=== PATIENT | male | born 1940 | race Caucasian/White ===

== ENCOUNTER → 2016-06-07 10:33 | Outpatient (CLI) | payer MEDICARE, BC ==
[2013-06-13 17:38] VITALS: BMI 30.4
[~2016-06-07 10:33] MED LIST: ASPIRIN325 MG PO; BAYER CHEWABLE81 MG PO; HYTRIN5 MG PO; LOFIBRA134 MG PO; PROVIGIL200 MG PO; REQUIP XL2 MG PO
[2016-06-08 07:26] LABS: IMMUNOGLOBULIN A 4053 mg/dL (61-437); IMMUNOGLOBULIN G 365 mg/dL (700-1600)
[2016-06-08 10:20] LABS: IMMUNOGLOBULIN E 7 IU/mL (0-100); IMMUNOGLOBULIN M 12 mg/dL (15-143)
== END | disposition home or self-care (01) ==
LOC: D.RT 10:33
PROVIDERS: Internal Medicine Pulmonary Disease
DX: R05 Cough (principal); J47.9 Bronchiectasis, uncomplicated

== ENCOUNTER 2016-10-16 21:00 | Inpatient (IN) | payer MEDICARE, BC ==
[~2016-10-16] VITALS: Ht 185.4 cm; Wt 104.3 kg
--- NOTE | ~2016-10-16 | HP ---
PATIENT: WAYNE MORROW MEDICAL RECORD: [id number] ACCOUNT: [id number] LOCATION:[address] : 41 ADMISSION DATE: 10/16/16 HISTORY AND PHYSICAL EXAMINATION Admission History and Physical DATE OF ADMISSION: 10/16/2016, for acute blood loss anemia and acute dehydration. HISTORY OF PRESENT ILLNESS: This is a 76-year-old white male. His called yesterday evening and she has gotten back in the town after being gone for a couple of days. The patient had complained of one episode of a black tarry stool on 10/15/2016 and he has felt weak and I have suggested that he come to the ER for further evaluation. He really had no abdominal pain or any known trouble with his bowels, except for history of diverticulosis. When he came to the ER, his white count is ____, hemoglobin 7.4, hematocrit 21.7 with 80% neutrophils and 13% lymphocytes. His basic metabolic panel is okay, except his BUN was quite elevated at 141 and creatinine elevated at 3.4. I have reviewed Dr. Oden's labs on this man. His baseline creatinine is around 1.0 to 1.1. PHYSICAL EXAMINATION: VITAL SIGNS: Otherwise, were stable and it was felt by the ER physician that he could be admitted to a regular telemetry bed. He has been seen by GI and has already had an EGD that showed linear ulcers in distal esophagus and antral ulcers as well. There was no active bleeding seen. Also, surrounding the GE junction, there was a ring versus a short stricture. He has been started on Carafate and Protonix drip. The patient did receive 2 units packed red blood cells today. Of note, also the nurse noted that he started having bright red blood in his urine today. The patient states he has never had that before. PAST MEDICAL AND SURGICAL HISTORY: He has hypertension, osteoarthritis, cataracts, coronary artery disease, sick sinus syndrome, sleep apnea. He has had cataracts ____. He has restless legs syndrome. He has had a tonsillectomy, coronary artery bypass graft done a few years ago, pacemaker placement, umbilical hernia repair in 2008. The patient was seen by Dr. Waterman for chronic cough and he ordered a CT scan of his chest and that was done on 06/07/2016, which was fairly unremarkable and his chest, but there was hydronephrosis noted. 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 Further testing by Dr. 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 It was noted on lab done by Dr. Hernandez on 08/17/2016, his BUN was elevated at 43 and creatinine 1.6. Last hemoglobin done by Dr. Hernandez showed hemoglobin of 10 and hematocrit of 31.0. HOME MEDICATIONS: Include doxazosin 1 mg at bedtime, gemfibrozil 600 mg twice a day; ropinirole 0.5 mg at bedtime, timolol eyedrops into the right eye, tamsulosin 0.4 mg once a day. ALLERGIES: No known drug allergies. SOCIAL HISTORY: He is retired. He lives with his . HABITS: He never smoked. No alcohol or drugs. HISTORY AND PHYSICAL [id number] WAYNE MORROW FAMILY HISTORY: Father at 80. Mother at 77 of an acute LA, she had diabetes. REVIEW OF SYSTEMS: GENERAL: He had a little weight loss. HEENT: No particular sinus or allergy problems. RESPIRATORY: He had a chronic cough and saw Dr. Waterman and actually has done better with that CARDIAC: He sees Dr. Joseph for heart disease and pacemaker monitoring. GASTROINTESTINAL: Colonoscopy in 2009 showed diverticulosis. He really had no nausea, vomiting or abdominal pain. GENITOURINARY: He denies any blood in his urine. He does have a history of BPH. ENDOCRINE: He has no diabetes or hypothyroidism. NEUROLOGIC: He has few aches and pains, especially in his knees. He has been taking a lot of Aleve for that. No migraine headaches or seizures. PSYCHIATRIC: Denies anxiety or depression. PHYSICAL EXAMINATION: GENERAL: He is awake and alert, in no acute distress. at bedside. VITAL SIGNS: Temperature 98.1, pulse 77, respirations 20, blood pressure 172/61. HEENT: Grossly within normal limits. NECK: Supple. HEART: Regular rate and rhythm without murmur. LUNGS: Fairly clear. ABDOMEN: Soft. Minimal tenderness. No guarding, no rebound, no mass. EXTREMITIES: No edema. LABORATORY WORK: Again admission labs showed a white count of ____, hemoglobin 7.4, hematocrit 21.7. Basic metabolic panel is okay, except BUN 141, creatinine 3.4. Liver functions were okay. DIAGNOSTIC DATA: No x-rays have been done. ASSESSMENT: 1. Acute blood loss anemia. 2. Upper gastrointestinal bleed. 3. Per EGD today, esophageal ulcers and gastric ulcer by Dr. Perez. 4. Acute dehydration. 5. Hematuria. 6. Hydronephrosis found on chest CT on 06/07/2016. A repeat CBC this afternoon at 1310 after 2 units of blood, shows hemoglobin went up to 7.6. PLAN: We will give him another unit of blood. We will check a urinalysis. I will order renal ultrasound due to the hydronephrosis. He may need urologic consultation. We will monitor H&H. Other tests and procedures as warranted. TRANSINT:[id number] Voice Confirmation ID: [id number] DOCUMENT ID: [id number] HISTORY AND PHYSICAL [id number] WAYNE MORROW WILLIAM MD CC: [id number] DICTATION DATE: 10/17/162099 FOOD CONSULTANT: 10/17/16 2220 ADM IN [facility] [address] [place] [place] [address]
--- NOTE | ~2016-10-16 | DS ---
PATIENT:WAYNE MORROW :42 MEDICAL RECORD: [id number] DISCHARGE SUMMARY ADMISSION DATE: 10/16/16 DISCHARGE DATE: 10/20/16 DISCHARGE DIAGNOSES: 1. Symptomatic acute blood loss anemia. 2. Esophageal ulcer. 3. Gastric ulcer. 4. Hematuria. 5. Benign prostatic hypertrophy. 6. Hydronephrosis with acute renal insufficiency. 7. Malignant lymphoplasmacytic lymphoma. CONSULTANTS: Dr. Garcia, Dr. Perez, Dr. Monroy, and Dr. Kearns. HOSPITAL COURSE: A 76-year-old male who had been taking 3 Aleve at bedtime on his own for chronic insomnia. He had black tarry stools for several days prior to admission and felt weak. He was directed to the Emergency Room by Dr. Manning. He was found to be very anemic and in acute renal failure. Hemoglobin was 7.4, hematocrit was 21.7 and creatinine was 3.4 with a BUN of 141. He was admitted, transfused, placed on IV PPIs and catheter placed. Imaging showed evidence of hydronephrosis. Above consultants were consulted to manage his illness. EGD was performed by Dr. Perez revealing ulcerative esophagitis and gastric ulcers as a source of GI bleeding. Dr. Garcia was consulted as well as nephrology to manage his post-obstructive diuresis. BUN and creatinine have improved. His H&H was stabilized. Today, he is asymptomatic without stools, tolerating diet and blood pressure is 124/76, H&H is 8.9 and 25.7, BUN and creatinine are 33 and 1.7. The patient was discharged home today with Holland in place to have follow up cystoscopy in [address] Garcia. He will be seen in my office in 48 hours, a CBC, BMP at that time. He will never take any anti-inflammatories again and remained on PPI prison. DISCHARGE MEDICATIONS: Flomax 0.4 mg p.o. daily, Lopid 600 mg p.o. b.i.d., Requip 5 mg p.o. at bedtime, Ritalin 10 mg p.o. b.i.d, Restoril 15 mg at h.s. p.r.n. sleep, Timoptic 0.5% ophthalmic drops 1 drop right eye b.i.d., ferrous sulfate 325 mg p.o. daily, Carafate 1 gram p.o. q.i.d. a.c. and h.s., Protonix 40 mg p.o. b.i.d. for 1 month then daily. He will remain off of Plavix and aspirin at this time. We will discuss with cardiology resuming these appropriately. DIET: Low cholesterol. ACTIVITY: Progress as tolerated. FOLLOWUP: Return to clinic to see me in 48 hours, a CBC and BMP and with Dr. Garcia in 2 weeks. He will be instructed on Holland care. TRANSINT:[id number] Voice Confirmation ID: [id number] DOCUMENT ID: [id number] DISCHARGE SUMMARY REPORT [id number] WAYNE MORROW TIMOTHY MD CC: [id number] DICTATION DATE: 10/20/16754 INTERTYPE OPERATOR: 10/21/16309 DIS IN 10/20/[id number] [place] [address]
[2016-10-16 21:45] LABS: BASOPHILS 0.1 % (0-2); EOSINOPHILS 0 % (0-7); HEMATOCRIT 21.7 % (42.0-54.0); IMMATURE GRANULOCYTES 0.5 % (0-5); LYMPHOCYTES 13.1 % (15-50); MCH 31.6 pg (26.0-34.0); MCHC 34.1 g/dL (31.0-37.0); MCV 92.7 fL (80.0-100.0); MEAN PLATELET VOLUME 9.5 fL (7.4-10.4); MONOCYTES 5.8 % (2-11); NEUTROPHILS 80.5 % (40-80); RBC 2.34 10x6/uL (4.20-6.10); RDW 12.2 % (11.5-14.5); WBC 15.4 10x3/uL (4.8-10.8)
[2016-10-16 21:52] LABS: HEMOGLOBIN 7.4 g/dL (13.5-17.5); PLATELET COUNT 239 10x3/uL (130-400)
[2016-10-16 21:58] LABS: ALBUMIN 3.3 g/dL (3.4-5.0); ANION GAP 22.6 mmol/L (8-16); BILIRUBIN - TOTAL 0.73 mg/dL (0.2-1.3); CARBON DIOXIDE 19.9 mmol/L (21.0-32.0); CREATININE - SERUM 3.4 mg/dL (0.6-1.3); POTASSIUM - SERUM 4.5 mmol/L (3.5-5.1); PROTEIN - SERUM 8.3 g/dL (6.4-8.2)
[2016-10-17] VITALS (7 sets, daily range): BP systolic 124–190; BP diastolic 53–125; BMI 30.4
--- NOTE | 2016-10-17 00:30 | NUR ---
ADMIT TO ROOM 2133 FROM ER. ACCOMPANIED BY HIS . PIV TO LEFT A/C. ADMISSION ASSESSMENT, HOME MEDS AND HISTORY REVIEWED/UPDATED. NO PAIN OR DISCOMFORT VOICED. SITED SECOND 20G IV TO RIGHT HAND FOR ORDERED PRBCS X 2. PT DIFFICULT STICK AND IT TOOK 2 NURSES/5 ATTEMPTS. SAFETY PRECAUTIONS REVIEWED. PT INSTRUCTED TO USE CALL LIGHT. IS STAYING WITH HIM AND IS IN BEDSIDE RECLINER.
[2016-10-17] MEDS ORDERED: LOPID600 MG PO (01:52)
[2016-10-17] MEDS ORDERED: RITALIN10 MG PO (01:55)
[2016-10-17] MEDS ORDERED: FLOMAX0.4 MG PO (01:56)
[2016-10-17] MEDS ORDERED: TIMOPTIC 0.5 % O5 ML RIGHT EYE (01:57)
[2016-10-17] MEDS ORDERED: ALEVE220 MG PO (01:58)
[2016-10-17] MEDS ORDERED: REQUIP5 MG PO (01:59)
--- NOTE | 2016-10-17 06:04 | NUR ---
1ST UNIT OF PRBCS COMPLETED AT 0515.
--- NOTE | 2016-10-17 07:28 | NUR ---
0711-AM ROUNDING DONE WITH PATIENT RECEIVED SECOND UNIT OF BLOOD TO RIGHT HAND, INFUSING AT 130 CC/HR WITHOUT PROBLEMS. PROTONIX DRIP AT 10 CC/HR SEEN INFUSING TO LEFT AC. ON 2L PER NC. IS AT BEDSIDE. WILL CONTINUE TO MONITOR BLOOD TRANSFUSION FOR ANY PROBLEMS.
--- NOTE | 2016-10-17 08:16 | NUR ---
0806-PERMITS SIGNED FOR EGD WITH TIVA TODAY. 0812-BLOOD HAS FINISHED TRANSFUSIING. NO S/S OF REACTIONS. PACEMAKER SITE SEEN TO LEFT CHEST UPPER WALL. WEARS GLASSES. WILL HAVE PATIENT CHANGE INTO GOWN AND GET READY FOR PROCEDURE.
--- NOTE | 2016-10-17 08:45 | NUR ---
0814-GI LAB HERE FOR PATIENT, CHANGING INTO GOWN AND NON SKID SOCKS PLACED ON HIM. I INFORMED THEM THAT NO PRE-OP MEDS HAVE BEEN GIVEN ANESTHSIA JUST LEFT THE ROOM AND THEY ARE HERE TO PICK HIM UP.
--- NOTE | 2016-10-17 10:20 | NUR ---
RECEIVED BACK FROM GI LAB. DENIES ANY NEEDS. WILL MONITOR.
[2016-10-17 10:48] LABS: BASOPHILS 0.1 % (0-2); EOSINOPHILS 0.1 % (0-7); HEMATOCRIT 20.3 % (42.0-54.0); IMMATURE GRANULOCYTES 0.2 % (0-5); LYMPHOCYTES 21.2 % (15-50); MCHC 34.5 g/dL (31.0-37.0); MCV 92.7 fL (80.0-100.0); MEAN PLATELET VOLUME 9.1 fL (7.4-10.4); MONOCYTES 8.9 % (2-11); NEUTROPHILS 69.5 % (40-80); RBC 2.19 10x6/uL (4.20-6.10); RDW 13.5 % (11.5-14.5)
[2016-10-17 10:55] LABS: WBC 9.3 10x3/uL (4.8-10.8)
[2016-10-17 10:56] LABS: ANION GAP 19.7 mmol/L (8-16); CALCIUM 8.2 mg/dL (8.5-10.1); CARBON DIOXIDE 19.3 mmol/L (21.0-32.0); CREATININE - SERUM 2.6 mg/dL (0.6-1.3)
[2016-10-17 10:58] LABS: PLATELET COUNT 181 10x3/uL (130-400)
--- NOTE | 2016-10-17 11:13 | NUR ---
1110-BLOOD COUNT TO RETURN PAST LAB DRAW AND TWO UNITS OF BLOOD WITH RESULT OF 7.0/20.3. CALLED LAB TO SEE WHERE LAB ENRRIQUE HIS BLOOD FROM (WHICH ARM). AWAITING CALL BACK. FAMILY MEMBER STATES IT WAS FROM HIS RIGHT ARM (IV FLUIDS ARE INFUSING TO RIGHT HAND). WILL AWAIT CALL BACK BEFORE CALLING DOCTOR.
--- NOTE | 2016-10-17 12:41 | NUR ---
IV FLUIDS SWITCHED TO LEFT AC SO THAT LAB CAN TRY AND DRAW FROM RIGHT FA.
--- NOTE | 2016-10-17 13:09 | NUR ---
LAN FROM LAB HERE FOR RE-DRAW. WAS ABLE TO DRAW BLOOD FROM RIGHT ARM WITH NO FLUIDS GOING. WILL AWAIT RESULTS.
--- NOTE | 2016-10-17 13:15 | NUR ---
LAB RESULTS FROM RE-DRAW ARE 7.6. WILL AWAIT FOR PRIMARY TO COME BY AND SEE PATIENT OR I WILL CALL SHORTLY.
[2016-10-17 13:22] LABS: ANION GAP 19.5 mmol/L (8-16); CARBON DIOXIDE 19.5 mmol/L (21.0-32.0); CREATININE - SERUM 2.8 mg/dL (0.6-1.3)
[2016-10-17 13:23] LABS: BASOPHILS 0.1 % (0-2); CALCIUM 8.5 mg/dL (8.5-10.1); EOSINOPHILS 0.2 % (0-7); HEMATOCRIT 21.6 % (42.0-54.0); HEMOGLOBIN 7.6 g/dL (13.5-17.5); IMMATURE GRANULOCYTES 0.1 % (0-5); LYMPHOCYTES 21.7 % (15-50); MCH 32.3 pg (26.0-34.0); MCHC 35.2 g/dL (31.0-37.0); MCV 91.9 fL (80.0-100.0); MEAN PLATELET VOLUME 9.3 fL (7.4-10.4); MONOCYTES 8.5 % (2-11); NEUTROPHILS 69.4 % (40-80); PLATELET COUNT 206 10x3/uL (130-400); RBC 2.35 10x6/uL (4.20-6.10); RDW 13.8 % (11.5-14.5); WBC 8.9 10x3/uL (4.8-10.8)
--- NOTE | 2016-10-17 14:51 | NUR ---
CALLED TO ROOM WITH PATIENT SHOWING ME SOME BRIGHT RED BLOOD SPOTS ON FLOOR PAST VOIDING IN URINAL. URINE IN URINAL IS SLIGHTY RED TINTED. PATIENT STATES THAT THIS HAPPENED. WHEN QUESTIONED ABOUT ANY BURNING OR STINGING, HE STATES THAT HE HAS "A LITTLE". CALL PLACED TO DR MOORE TO NOTIFY HIM OF THIS AND PATIENT'S BLOOD COUNT. AWAITING CALL BACK.
--- NOTE | 2016-10-17 15:15 | NUR ---
DR MOORE TO CALL BACK AND STATES THAT HE WILL BE BY TO SEE HIS PATIENTS IN APPROX 30 MIN. THIS IS RELAYED TO THE PATIENT.
--- NOTE | 2016-10-17 15:58 | OP ---
PATIENT NAME: WAYNE MORROW MEDICAL RECORD: [id number] :42 LOCATION:D.M2 D.2133 ADMISSION DATE:10/16/16 SURGEON: DAVEY BALDWIN MD DATE OF OPERATION: 10/17/2016 PROCEDURE: EGD with biopsy. ATTENDING PHYSICIAN: Abhilash Oden MD INDICATIONS: Mr. Morrow is a very pleasant 76-year-old gentleman with a history of coronary artery disease, COPD and obstructive sleep apnea, who presented to the Emergency Department with symptoms of voluminous episodes of coffee-ground emesis and black stools. He had been taking Aleve at home at bedtime to help him sleep. His hemoglobin on presentation was 7.4, BUN 141 with creatinine of 3.4. He has received 2 units of packed red blood cells. IV fluid and Protonix drip overnight. A repeat CBC is pending. He presents for inpatient EGD. PREMEDICATIONS: Total IV anesthesia (ASA 3, COPD and coronary artery disease) propofol 150 mg. INSTRUMENT: Olympus video gastroscope. PROCEDURE AND FINDINGS: After receiving informed consent, Mr. Morrow's posterior pharynx was anesthetized with Cetacaine spray, placed in left lateral decubitus position, sedated as per anesthesia. After achieving adequate level of sedation, gastroscope was introduced per orally and advanced into the duodenum without difficulty. There were several long linear ulcers in the distal third of the esophagus and then at the GE junction were circumferential ulcers, no active bleeding. The moderate size hiatal hernia is present. Gastric mucosa was notable for moderate prepyloric and antral erythema with edema within the edematous antral mucosa were buried 3 deeply cratered, but small ulcers, no visible vessel or active bleeding. Antral biopsies were obtained to rule out Helicobacter pylori. No lesions were seen in the body of the stomach in the cardia or fundus. Pylorus was patent and competent. Duodenal mucosa was without erythema or ulcers, appeared normal through the second portion. Gastroscope was then withdrawn. Mr. Morrow tolerated the procedure well, no immediate complications. ASSESSMENT: 1. Ulcerative esophagitis. 2. Nonobstructive Schatzki's ring versus short stricture. 3. Moderate size hiatal hernia. 4. Antral ulcers. 5. Hematemesis and melenic stools likely secondary to combination of ulcerative esophagitis and gastric ulcers. 6. Anemia, acute, secondary to gastrointestinal blood loss. RECOMMENDATIONS: 1. Avoid nonsteroidal anti-inflammatory drugs including Aleve. 2. Continue Protonix drip today and will likely change to p.o. tomorrow. 3. Hemoglobin and hematocrit every 12 hours. 4. Recheck CBC this morning post-transfusion of 2 units of packed red blood cells as well as repeating the BMP. 5. Carafate elixir 1 gram p.o. q.6 hours. 6. [employer] diet. OPERATIVE REPORT [id number] WAYNE MORROW TRANSINT:[id number] Voice Confirmation ID: [id number] DOCUMENT ID: [id number] DAVEY BALDWIN MD at 1558 CC: ABHILASH ODEN MD [id number] DICTATION DATE: 10/17/16 1006 MECHANICAL ASSEMBLY: 10/17/16 1227 ADM IN [facility] [address] [id number]
--- NOTE | 2016-10-17 16:46 | NUR ---
UA AND URINE CULTURE SENT TO LAB ORDERED. PATIENT DOES HAVE A SMALL CLOT IN THE URINAL, THIS IS SHOWN TO DR MOORE.
[2016-10-17 16:54] LABS: APPEARANCE HAZY (CLEAR); BILIRUBIN NEGATIVE (NEGATIVE); COLOR YELLOW (YELLOW); GLUCOSE NEGATIVE (NEGATIVE); KETONE NEGATIVE (NEGATIVE); LEUKOCYTE ESTERASE NEGATIVE (NEGATIVE); NITRITE NEGATIVE (NEGATIVE); PROTEIN NEGATIVE (NEGATIVE); UROBILINOGEN NORMAL (NORMAL)
--- NOTE | 2016-10-17 16:55 | NUR ---
NO SCD'S PATIENT IS A GI BLEED. PATIET IS UP AD MANJINDER TO RESTROOM AND CHAIR.
[2016-10-17 16:56] LABS: BACTERIA FEW /hpf (NONE SEEN); EPITHELIAL CELLS OCC /hpf (0-5); RED CELLS - URINE >50 /hpf (0-5); WHITE CELLS - URINE 0-5 /hpf (0-5)
--- NOTE | 2016-10-17 18:00 | NUR ---
1730-1 UNIT OF BLOOD STARTING TO SLOWLY TRANSFUSE AT 125 CC/HR TO RIGHT HAND. WILL MONITOR FOR ANY REACTIONS.
--- NOTE | 2016-10-17 19:31 | NUR ---
ASSESSMENT COMPLETE, A&O. 02 AT 2 LITER VIA NC. RESPERATIONS EVEN AND UNLABORED. IV TO LEFT AC WITH PROTONIX INFUSING AT 10 CC/HR, RIGHT HAND WITH PRBCS INFUSING, VITALS STABLE. PT DENIES PAIN OR NEEDS, BED LOW, CL IN REACH, WILL CONT TO MONITOR.
--- NOTE | 2016-10-17 20:24 | NUR ---
PRBCS FINISHED INFUSING, LINE FLUSHIHG WITH NS. VITALS STABLE, NO S/S ADVERSE REACTION NOTED.
--- NOTE | 2016-10-17 20:52 | NUR ---
HS MEDS GIVEN, PT DENIES PAIN OR NEEDS, BED LOW, CL IN REACH.
[2016-10-17 23:20] LABS: HEMATOCRIT 23.2 % (42.0-54.0)
[2016-10-18] VITALS: BP 108/43
[2016-10-18 04:00] VITALS: BP 123/46
[2016-10-18 07:01] LABS: BASOPHILS 0.2 % (0-2); EOSINOPHILS 0.5 % (0-7); HEMATOCRIT 22.2 % (42.0-54.0); IMMATURE GRANULOCYTES 0.2 % (0-5); LYMPHOCYTES 27.1 % (15-50); MCH 31.1 pg (26.0-34.0); MCHC 33.8 g/dL (31.0-37.0); MCV 92.1 fL (80.0-100.0); MEAN PLATELET VOLUME 9.3 fL (7.4-10.4); MONOCYTES 11.9 % (2-11); NEUTROPHILS 60.1 % (40-80); PLATELET COUNT 190 10x3/uL (130-400); RBC 2.41 10x6/uL (4.20-6.10); RDW 14.5 % (11.5-14.5)
[2016-10-18 07:03] LABS: HEMOGLOBIN 7.5 g/dL (13.5-17.5); WBC 6.6 10x3/uL (4.8-10.8)
[2016-10-18 07:21] LABS: ANION GAP 17.2 mmol/L (8-16); CALCIUM 8.6 mg/dL (8.5-10.1); CARBON DIOXIDE 20.9 mmol/L (21.0-32.0); CREATININE - SERUM 2.2 mg/dL (0.6-1.3); POTASSIUM - SERUM 4.1 mmol/L (3.5-5.1)
[2016-10-18 08:00] VITALS: BP 109/54
--- NOTE | 2016-10-18 08:10 | NUR ---
ASSESSMENT DONE. DENIES NEEDS,
[2016-10-18 08:31] LABS: APTT 31.7 SECONDS (22.8-39.4); INR 1.19 (0.85-1.17)
--- NOTE | 2016-10-18 08:51 | NUR ---
SITTING UP SOB. IV PATENT. AT BS. WILL CONT. PLAN OF CARE.
[2016-10-18 09:59] LABS: HEMATOCRIT 21.2 % (42.0-54.0)
[2016-10-18 10:08] LABS: HEMOGLOBIN 7.1 g/dL (13.5-17.5)
[2016-10-18 12:17] VITALS: BP 152/69
--- NOTE | 2016-10-18 12:50 | NUR ---
FIRST UNIT OF BLOOD HUNG PER PEPPER Jansen,RN
--- NOTE | 2016-10-18 15:11 | NUR ---
Patient Name: WYANE MORROW Admission Status: ER Accout number: [id number] Admission Date: 10-16-2016 : 1940 Admission Diagnosis:ACUTE POSTHEMORRHAGIC ANEMIA Attending: CARLOS Current LOS: 2 Anticipated DC Date: Planned Disposition: Home Primary Insurance: MEDICARE A & B Discharge Planning Comments: * Is the patient Alert and Oriented? Yes 0 * How many steps to enter\exit or inside your home? 0-O / 14-I 0 * PCP DR. MIRANDA 0 * [facility] [address] [place] [address] 0 * Preadmission Environment Home with Family 0 * ADLs Independent 0 * Equipment CPAP 0 * Other Equipment [facility] MED[facility] EQUIPMENT PROVIDER 0 * List name and contact numbers for known caregivers / representatives who currently or will assist patient after discharge: DANIEL MORROW, SPOUSE, 0 * Community resources currently utilized None 0 * Please name any agencies selected above. NONE 0 * Additional services required to return to the preadmission environment? No 0 * Can the patient safely return to the preadmission environment? Yes 0 * Has this patient been hospitalized within the prior 30 days at any hospital? No 0 CM MET WITH PT IN ROOM TO DISCUSS DISCHARGE PLANNING AND NEEDS. PT REPORTS LIVING AT HOME INDEPENDENTLY WITH SPOUSE. PT HAS A CPAP THAT HE HAS NOT USED IN SEVERAL YEARS; MEDICAL EQUIPMENT PROVIDER IS [employer]. PT HAS NO OUTSIDE SERVICES ASSISTING IN THE HOME. CM DISCUSSED AVAILABILITY OF HOME HEALTH, REHAB SERVICES AND MEDICAL EQUIPMENT. PT DENIES DISCHARGE NEEDS, REPORTS PLAN TO DISCHARGE HOME, SPOUSE WILL PICK HIM UP FOR DISCHARGE HOME. PT PLANS TO DISCHARGE HOME WITH SPOUSE, DENIES DISCHARGE NEEDS. CM TO FOLLOW AND ASSIST IF NEEDED. Equipment Detailer: Toby Lee
--- NOTE | 2016-10-18 16:15 | NUR ---
FIRST UNIT DONE. 2ED UNIT HUNG PER BLAIRE,RN
[2016-10-18 16:28] VITALS: BP 163/56
--- NOTE | 2016-10-18 17:54 | NUR ---
WITHOUT CHANGES OR DISTRESS NOTED AT THIS TIME. DENIES NEEDS.
--- NOTE | 2016-10-18 19:33 | NUR ---
ASSESSMENT COMPLETE, A&O. RESPERATOINS EVEN ON RA. IV TO RIGHT HAND WITH NS FLUSING LINE OF FINISHED PRBCs. SITE CLEAN AND DRY. TALAMANTES CATH DRAINING TO GRAVITY. PT DENIES PAIN OR NEEDS, BED LOW, CL IN REACH, WILL CONT TO MONITOR.
[2016-10-18 20:08] LABS: HEMATOCRIT 24.3 % (42.0-54.0); HEMOGLOBIN 8.4 g/dL (13.5-17.5)
[2016-10-18 21:46] VITALS: BP 134/70
--- NOTE | 2016-10-18 21:46 | NUR ---
HS MEDS GIVEN, RESTORIL 7.5 MG GIVEN TO ASSIST WITH SLEEPING, PT STATES THAT HE WAKES UP FREQUENTLY THROUGH OUT THE NIGHT.
[2016-10-18 22:24] LABS: HEMATOCRIT 25.3 % (42.0-54.0); HEMOGLOBIN 8.8 g/dL (13.5-17.5)
[2016-10-19 01:37] VITALS: BP 121/52
--- NOTE | 2016-10-19 02:09 | NUR ---
PRBCs INFUSING TO RIGHT HAND IV, VITALS STABLE, WILL CONT TO MONITOR.
[2016-10-19 05:32] VITALS: BP 108/75
--- NOTE | 2016-10-19 05:38 | NUR ---
PACKED RED BLOOD CELLS FINISHED INFUSING, LINE FLUSHING WITH NS, VIATALS STABLE, NO S/S ADVERSE REACTIONS NOTED.
[2016-10-19 05:52] LABS: BASOPHILS 0.2 % (0-2); HEMATOCRIT 27.4 % (42.0-54.0); HEMOGLOBIN 9.5 g/dL (13.5-17.5); IMMATURE GRANULOCYTES 0.2 % (0-5); LYMPHOCYTES 42.3 % (15-50); MCH 31.7 pg (26.0-34.0); MCHC 34.7 g/dL (31.0-37.0); MCV 91.3 fL (80.0-100.0); MEAN PLATELET VOLUME 9.5 fL (7.4-10.4); MONOCYTES 10.1 % (2-11); NEUTROPHILS 45.2 % (40-80); PLATELET COUNT 171 10x3/uL (130-400); RDW 14.2 % (11.5-14.5); WBC 6.2 10x3/uL (4.8-10.8)
[2016-10-19 06:29] LABS: CARBON DIOXIDE 20.9 mmol/L (21.0-32.0); POTASSIUM - SERUM 3.9 mmol/L (3.5-5.1)
[2016-10-19 06:32] LABS: CREATININE - SERUM 1.6 mg/dL (0.6-1.3)
--- NOTE | 2016-10-19 07:00 | NUR ---
RECEIVED REPORT. ASSUMED CARE OF PATIENT. CALL LIGHT TYLOR TONI. DENIES NEEDS AT THIS TIME. PATIENT HAS LOTS OF QUESTIONS FOR PHYSICIAN THIS AM HE STATES HE FEELS THAT ALL OF THESE PROBLEMS THAT HE IS HAVING SHOULD HAVE BEEN CAUGHT MONTHS AGO INSTEAD OF HIM ENDING UP IN THE HOSPITAL. STAYED AND TALKED WITH PATIENT, MOSTLY LET PATIENT VENT. ENCOURAGED PATIENT TO SPEAK WITH THIS AM WITH MAKES HIS BEDSIDE ROUNDS. PATIENT VERBALIZED HIS UNDERSTANDING AND STATES HE WILL DO JUST THAT. DENIES NEEDS. NO DISTRESS. IV FLUIDS INFUSING ORDERED. F/C PATENT. CLEAR STRAW COLORED URINE.
[2016-10-19 08:15] VITALS: BP 142/66
[2016-10-19 10:51] LABS: HEMATOCRIT 27.4 % (42.0-54.0); HEMOGLOBIN 9.6 g/dL (13.5-17.5)
[2016-10-19 12:04] VITALS: BP 140/71
--- NOTE | 2016-10-19 13:17 | NUR ---
1700 EMPTIED FROM TALAMANTES AT THIS TIME. URINE PINK IN COLOR WITH SMALL CLOT NOTED IN TUBING. DENIES NEEDS AT THIS TIME. CALL LIGHT WITHINR EACH. NO DISTRESS.
[2016-10-19 13:49] VITALS: Ht 185.4 cm; Wt 104.3 kg
--- NOTE | 2016-10-19 14:01 | NUR ---
22 GAUGE IV PLACED TO RIGHT WRIST X 1 STICK. GOOD BLOOD RETURN, EASY FLUSH. TAPED, DATED AND SECURED PER PROTOCOL. 20 GAUGE TO LEFT AC REMOVED DUE TO LEAKING, INFILTRATION. NO BLEEDING FROM SITE. 2X2 GAUZE APPLIED AND SECURED WITH TAPE. CATHETER TIP INTACT. TOLERATED IV REMOVAL AND INSERTION OF NEW IV WELL. FAMILY AT BEDSIDE AT THIS TIME. NO DISTRESS.
[2016-10-19 14:34] LABS: HEMATOCRIT 27.8 % (42.0-54.0); HEMOGLOBIN 9.6 g/dL (13.5-17.5)
[2016-10-19 16:12] VITALS: BP 136/68
--- NOTE | 2016-10-19 18:00 | NUR ---
PATIENT SITTING IN BED. PATIENT HAS LOTS OF QUESTIONS ABOUT HIM GOING HOME WITH A CATHETER AND HOW TO CARE FOR THE CATHETER. TIME SPENT WITH PATIENT EDUCATING HIM THE OPTIONS AVAILABLE AND CARE INSTRUCTIONS PROVIDED BUT ALSO EXPLAINED TO HIM THAT THE NURSE THAT DISCHARGES HIM HOME WITH GO OVER EVERYTHING AND MAKE SURE HE UNDERSTANDS BEFORE HE LEAVES. PATIENT THANKED THIS TRAIN STATION SERVER. DENIES NEEDS AT THIS TIME. NO DISTRESS.
--- NOTE | 2016-10-19 19:40 | NUR ---
PT RECEIVED LYING IN BED RESTING QUIETLY WITH EYES CLOSED. AROUSED EASILY. ASSESSMENT COMPLETED PER FLOW SHEET AT THIS TIME. PT DENIES NEEDS. BED LOW. PHONE AND CALL LIGHT IN REACH. SRX2.
--- NOTE | 2016-10-19 20:40 | NUR ---
PM MEDS GIVEN AT THIS TIME. PT DENIES NEEDS. BED LOW. PHONE AND CALL LIGHT IN REACH. SRX2.
[2016-10-19 22:09] VITALS: BP 126/63
--- NOTE | 2016-10-20 00:18 | NUR ---
PT RESTING QUIETLY AT THIS TIME WITH EYES CLOSED. RESPIRATIONS EVEN, NON-LABORED. NO ACUTE DISTRESS NOTED AT THIS TIME. BED LOW. PHONE AND CALL LIGHT IN REACH. SRX2.
[2016-10-20 00:45] VITALS: BP 109/54
--- NOTE | 2016-10-20 02:18 | NUR ---
PT LYING IN BED RESTING QUIETLY AT THIS TIME WITH EYES CLOSED. RESPIRATIONS EVEN, NON-LABORED. NO ACUTE DISTRESS NOTED AT THIS TIME. BED LOW. PHONE AND CALL LIGHT IN REACH. SRX2.
--- NOTE | 2016-10-20 04:28 | NUR ---
PT RESTING QUIETLY AT THIS TIME WITH EYES CLOSED. RESPIRATIONS EVEN, NON-LABORED. NO ACUTE DISTRESS NOTED. BED LOW. PHONE AND CALL LIGHT IN REACH. SRX2.
[2016-10-20 05:13] VITALS: BP 144/76
[2016-10-20 06:01] LABS: BASOPHILS 0.2 % (0-2); EOSINOPHILS 3.3 % (0-7); HEMATOCRIT 25.7 % (42.0-54.0); HEMOGLOBIN 8.9 g/dL (13.5-17.5); IMMATURE GRANULOCYTES 0.2 % (0-5); LYMPHOCYTES 36.3 % (15-50); MCH 31.6 pg (26.0-34.0); MCHC 34.6 g/dL (31.0-37.0); MCV 91.1 fL (80.0-100.0); MEAN PLATELET VOLUME 9.1 fL (7.4-10.4); MONOCYTES 13.7 % (2-11); NEUTROPHILS 46.3 % (40-80); PLATELET COUNT 183 10x3/uL (130-400); RBC 2.82 10x6/uL (4.20-6.10); RDW 13.7 % (11.5-14.5); WBC 6.4 10x3/uL (4.8-10.8)
--- NOTE | 2016-10-20 06:09 | NUR ---
LOPID PO GIVEN AT THIS TIME. PT DENIES OTHER NEEDS. BED LOW. PHONE AND CALL LIGHT IN REACH. SRX2.
[2016-10-20 06:40] LABS: CALCIUM 8.2 mg/dL (8.5-10.1); CARBON DIOXIDE 22.7 mmol/L (21.0-32.0); CREATININE - SERUM 1.7 mg/dL (0.6-1.3); POTASSIUM - SERUM 3.7 mmol/L (3.5-5.1)
--- NOTE | 2016-10-20 07:45 | NUR ---
INTRODUCED MYSELF TO PT PRIMARY RN FOR TODAYS SHIFT. PT IS A&O RESTING QUIETLY IN BED WITH AT BEDSIDE. AT BEDSIDE AND STATES HE WILL BE DISCHARGING THIS AM. SHIFT ASSESSMENT COMPLETED PT HAS R.HAND PIV WITH PROTONIX DRIP INFUSING @10ML/HR. PT HAS A TALAMANTES IN PLACE DRAINING PINKISH TINGE URINE TO GRAVITY BAG, STAT LOCK SECURED TO R.INNER THIGH. PT WAITING ON DISCHARGE PAPERS AND IS ANXIOUS TO GO HOME. NO FURTHER NEEDS NOTED AT THIS TIME. WILL CPOC.
[2016-10-20] MEDS ORDERED: CARAFATE1 G/10 ML PO (07:55)
[2016-10-20] MEDS ORDERED: PROTONIX40 MG PO (07:55)
[2016-10-20] MEDS ORDERED: FERROUS SULFAT325 MG PO (07:56)
[2016-10-20 08:19] VITALS: BP 144/82
--- NOTE | 2016-10-20 09:19 | NUR ---
Patient Name: WAYNE MORROW Encounter No: [id number] : 1940 Primary Insurance: MEDICARE A & B Anticipated DC Date: 10-20-2016 Planned Disposition: Home DCP follow-up note: CM MET WITH PT IN ROOM TO DISCUSS DISCHARGE NEEDS AND PLANNING. PT DENIES DISCHARGE NEEDS. PT ASKED QUESTION ABOUT HOW TO UNDERSTAND THE DETAILED BILL HE RECEIVES FROM HOSPITAL, CM EXPLAINED THAT IF HE HAS QUESTIONS AFTER REVIEWING HIS BILL, CONTACT BUSINESS OFFICE FOR ASSISTANCE. PT'S SPOUSE HERE TO TRANSPORT HOME AT DISCHARGE. IMPORTANT MESSAGE FROM MEDICARE PROVIDED AND EXPLAINED. BALAJI HERNANDEZ, CASE MANAGEMENT
[2016-10-20 10:41] LABS: HEMATOCRIT 26.3 % (42.0-54.0)
--- NOTE | 2016-10-20 10:48 | NUR ---
DISCHARGE TEACHING COMPLETED AND PAPERS SIGNED. INTENSIVE TEACHING TALAMANTES TRAINING COMPLETED AND LEG BAG PROVIDED AND PLACED USING STERILE TECHNIQUE. COLLECTED BELONGINGS AND I CALLED FOR W/C. D/C PTS R.WRIST PIV WITH CATHETER TIP FULLY INTACT. NO FURTHER NEEDS. WILL BEING WHEELED DOWN.
== END 2016-10-20 10:55 | disposition home or self-care (01) | DRG 381 ==
LOC: D.ER 21:00 → D.M2 23:13
PROVIDERS: Emergency Medicine; Family Medicine; Internal Medicine Gastroenterology; ADMIT Family Medicine
PROC: 0DB68ZX Excision of Stomach, Via Natural or Artificial Opening Endoscopic, Diagnostic (ICD-10-PCS; principal; 2016-10-16)
PROC: 0T9B70Z Drainage of Bladder with Drainage Device, Via Natural or Artificial Opening (ICD-10-PCS; 2016-10-18)
DX: K22.10 Ulcer of esophagus without bleeding (principal); D62 Acute posthemorrhagic anemia; N17.9 Acute kidney failure, unspecified; N13.8 Other obstructive and reflux uropathy; N13.30 Unspecified hydronephrosis; C83.00 Small cell B-cell lymphoma, unspecified site; K25.3 Acute gastric ulcer without hemorrhage or perforation; K92.0 Hematemesis; J44.9 Chronic obstructive pulmonary disease, unspecified; R31.9 Hematuria, unspecified; N40.1 Benign prostatic hyperplasia with lower urinary tract symptoms

== ENCOUNTER 2016-10-25 21:58 | Emergency (ER) | payer MEDICARE, BC ==
[2016-10-19 13:49] VITALS: BMI 30.3
[~2016-10-25 21:58] MED LIST changes: +ALEVE220 MG PO; +CARAFATE1 G/10 ML PO; +FERROUS SULFAT325 MG PO; +FLOMAX0.4 MG PO; +LOPID600 MG PO; +PROTONIX40 MG PO; +REQUIP5 MG PO; +RITALIN10 MG PO; +TIMOPTIC 0.5 % O5 ML RIGHT EYE
[2016-10-25 22:47] LABS: BASOPHILS 0.1 % (0-2); HEMATOCRIT 32.8 % (42.0-54.0); IMMATURE GRANULOCYTES 0.3 % (0-5); LYMPHOCYTES 16.7 % (15-50); MCH 31.7 pg (26.0-34.0); MCHC 33.5 g/dL (31.0-37.0); MCV 94.5 fL (80.0-100.0); MEAN PLATELET VOLUME 8.7 fL (7.4-10.4); MONOCYTES 8.3 % (2-11); NEUTROPHILS 72.6 % (40-80); RBC 3.47 10x6/uL (4.20-6.10); RDW 13.5 % (11.5-14.5); WBC 9.4 10x3/uL (4.8-10.8)
[2016-10-25 22:51] LABS: PLATELET COUNT 281 10x3/uL (130-400)
[2016-10-25 22:51] LABS: APPEARANCE TURBID (CLEAR); BACTERIA MODERATE /hpf (NONE SEEN); BILIRUBIN NEGATIVE (NEGATIVE); COLOR RED (YELLOW); GLUCOSE NEGATIVE (NEGATIVE); KETONE NEGATIVE (NEGATIVE); LEUKOCYTE ESTERASE TRACE (NEGATIVE); NITRITE NEGATIVE (NEGATIVE); PROTEIN 1+ mg/dL (NEGATIVE); RED CELLS - URINE >50 /hpf (0-5); SPECIFIC GRAVITY 1.015 (1.005-1.020); UROBILINOGEN NORMAL (NORMAL)
[2016-10-25 23:12] LABS: ANION GAP 17.5 mmol/L (8-16); BILIRUBIN - TOTAL 0.3 mg/dL (0.2-1.3); CALCIUM 8.7 mg/dL (8.5-10.1); CARBON DIOXIDE 23.3 mmol/L (21.0-32.0); CREATININE - SERUM 1.5 mg/dL (0.6-1.3); POTASSIUM - SERUM 4.8 mmol/L (3.5-5.1); PROTEIN - SERUM 8.2 g/dL (6.4-8.2)
== END 2016-10-26 01:15 | disposition home or self-care (01) ==
LOC: D.ER 21:58
PROVIDERS: Emergency Medicine
DX: R33.9 Retention of urine, unspecified (principal); N39.0 Urinary tract infection, site not specified

== ENCOUNTER 2016-11-21 23:15 | Emergency (ER) | payer MEDICARE, BC ==
[2016-10-19 13:49] VITALS: BMI 30.3
== END 2016-11-22 00:20 | disposition home or self-care (01) ==
LOC: D.ER 23:15
DX: T83.098A Other mechanical complication of other urinary catheter, initial encounter (principal); N13.9 Obstructive and reflux uropathy, unspecified; Z95.0 Presence of cardiac pacemaker

== ENCOUNTER 2017-02-22 05:41 | Day surgery (SDC) | payer MEDICARE, BC ==
[2017-02-21 16:23] LABS: HEMATOCRIT 33.7 % (42.0-54.0); HEMOGLOBIN 11.6 g/dL (13.5-17.5); MCH 32.4 pg (26.0-34.0); MCHC 34.4 g/dL (31.0-37.0); MCV 94.1 fL (80.0-100.0); MEAN PLATELET VOLUME 9.6 fL (7.4-10.4); RBC 3.58 10x6/uL (4.20-6.10); RDW 12.3 % (11.5-14.5); WBC 6.6 10x3/uL (4.8-10.8)
[~2017-02-22 05:41] MED LIST changes: +PROSCAR5 MG PO; +RESTORIL15 MG PO; +ZESTRIL20 MG PO
[2017-02-22 16:56] VITALS: BP 131/57; BMI 30.4
--- NOTE | 2017-02-22 21:12 | NUR ---
PATIENT ARRIVED FROM OP VIA STRETCHER, HE IS ALERT AND SPOUSE IS AT BEDSIDE. ORIENTED TO ROOM AND CALL LIGHT.
--- NOTE | 2017-02-22 22:10 | NUR ---
PATIENT UP TO BATHROOM WITH ASSIST, DENIES NAUSEA OR DIZZINESS. WILL DISCHARGE TO HOME WITH SPOUSE. DISCHARGE INSTRUCTIONS GIVEN, WILL KEEP TALAMANTES IN UNTIL APT TOMORROW AT CLINIC. PATIENT AND SPOUSE VERBALIZES UNDERSTANDING.
--- NOTE | 2017-02-22 22:28 | NUR ---
patient discharged to home, left via wheelchair.
--- NOTE | 2017-02-22 23:28 | OP ---
PATIENT NAME: WAYNE MORROW MEDICAL RECORD: [id number] :42 LOCATION:D.OPS ADMISSION DATE: SURGEON: SHAWN WINKLER MD DATE OF OPERATION: 02/22/2017 SURGEON: Shawn Winkler MD. ANESTHESIA: General anesthesia by Simeon covarrubias CRNA. PREOPERATIVE DIAGNOSIS: Chronic urinary retention, obstructive BPH. PROCEDURES: Cystoscopy, GreenLight laser transurethral resection of the prostate, power was 80 to 160 novak, laser on time 32 minutes and 8 seconds, energy 203,084 joules. COMPLICATIONS: None. FINDINGS: Bilateral lateral lobe hyperplasia with single ureteral orifices. Heavily trabeculated bladder with diverticula. No bladder tumors. ESTIMATED BLOOD LOSS: Minimal. CLINICAL HISTORY: This is a 76-year-old male, who has been in urinary retention for over 3 months. I have put him on finasteride all this time. He was unable to tolerate tamsulosin or doxazosin which made him dizzy. Monthly voiding trials have been unsuccessful. He is getting tired of waiting for the finasteride to shrink his prostate medically. He wants to proceed with a GreenLight laser transurethral resection of the prostate. He has had an indwelling Holland catheter all this time as he is unable to void. He does have a very enlarged prostate on rectal examination. HE IS ALLERGIC TO ALEVE and NSAIDs. He was given Ancef provider relations manager to the OR. DESCRIPTION OF PROCEDURE: The patient was given general anesthetic. He was placed in dorsal lithotomy position and prepped and draped. The laser resectoscope was placed into the urethra using a 30-degree lens. The visual obturator was used for cystoscopy. The penile urethra was normal and nonobstructive. Upon meeting the prostate, the verumontanum could be easily seen. He has very large lateral lobes, which are obstructive. Going into the bladder neck, there is no significant median lobe. The bladder neck is not obstructive. There are single ureteral orifices in the bladder. No bladder tumors were seen. The ureteral orifices are located at some distance away from the bladder neck. The rest of the bladder was heavily trabeculated with cellules and diverticula. We then introduced the laser fiber after switching over to the resection bridge. The resection was maintained between the bladder neck to just proximal to the verumontanum. I initially started at 80 novak and carved out a channel on the posterior portion of the prostate. Once this channel was carved out it allowed us to have some water flow during the procedure. Then, we progressively increased the energy levels higher as we worked on lateral lobes. Towards the apex of the prostate, the power level was again cut down to 80 novak while we just removed some of the residual tissue and coagulated any bleeding from the apex and the bladder neck. The bladder neck resection was done at 80 novak or at most 100 novak. The lateral lobes were taken down from most of it with 100 novak. However, as the tissue became desiccated we have to progressively go up on the power level to 120, 140, and eventually to 160 novak. During the procedure, there was some bleeding from an OPERATIVE REPORT [id number] WAYNE MORROW arterial bleeder in the bladder neck level at about 11 o'clock. This was finally coagulated using the coagulation setting of the laser. The rest of the prostate was relatively avascular during the resection. At the end of the procedure, we had a very shaggy residual prostatic tissue. We were at the capsular level as we unroofed several prostatic stones at that plane. The verumontanum was still intact. I did not want to risk causing any extra bleeding at this point. The laser was then turned off and the scope was reintroduced into the bladder to see the ureteral orifices, which were still intact. Going from the level of the external urinary sphincter, there was a channel going into the bladder neck. The scope was then removed. A 20-Kazakh 3-way Holland catheter was then introduced into the bladder. Once the catheter was fully in the bladder with hub up against the penis, the balloon was inflated with 30 mL of sterile water. The inflow port was capped with a catheter plug. Drainage port was put to bag drainage. The patient will be going home tonight with a catheter in place. He will come to my office tomorrow to have the catheter removed for a voiding trial. TRANSINT:[id number] Voice Confirmation ID: [id number] DOCUMENT ID: [id number] SHAWN WINKLER MD at 2324 CC: [id number] DICTATION DATE: 02/22/172024 SORTING MACHINE ATTENDANT: 02/22/172322 [facility] 02/22/17 [facility] [address] [place] [address]
== END 2017-02-22 22:25 | disposition home or self-care (01) ==
LOC: D.OPS 05:41 → D.PAN 13:05 → D.OPS 13:05 → D.PAN 13:30 → D.MS 20:20 → D.OPS 22:25
PROVIDERS: Anesthesiology
DX: N40.1 Benign prostatic hyperplasia with lower urinary tract symptoms (principal); R33.9 Retention of urine, unspecified; I10 Essential (primary) hypertension; I25.10 Atherosclerotic heart disease of native coronary artery without angina pectoris; K21.9 Gastro-esophageal reflux disease without esophagitis; Z95.1 Presence of aortocoronary bypass graft; Z95.0 Presence of cardiac pacemaker; Z01.812 Encounter for preprocedural laboratory examination

== ENCOUNTER → 2017-03-02 17:38 | Outpatient (CLI) | payer MEDICARE, BC ==
[2017-02-22 16:56] VITALS: BMI 30.4
== END | disposition home or self-care (01) ==
LOC: D.LABREF 17:38
DX: N39.0 Urinary tract infection, site not specified (principal)

== ENCOUNTER → 2017-03-18 16:40 | Outpatient (CLI) | payer MEDICARE, BC ==
[2017-02-22 16:56] VITALS: BMI 30.4
== END | disposition home or self-care (01) ==
LOC: D.LABREF 16:40
DX: N39.0 Urinary tract infection, site not specified (principal)

== ENCOUNTER → 2017-04-19 17:19 | Outpatient (CLI) | payer MEDICARE, BC | END | disposition home or self-care (01) | LOC: D.LABREF 17:19 | DX: N39.0 Urinary tract infection, site not specified (principal) ==

== ENCOUNTER → 2017-05-20 19:52 | Outpatient (CLI) | payer MEDICARE, BC ==
[2017-05-20 20:27] LABS: APPEARANCE CLEAR (CLEAR); BILIRUBIN NEGATIVE (NEGATIVE); COLOR YELLOW (YELLOW); GLUCOSE NEGATIVE (NEGATIVE); KETONE NEGATIVE (NEGATIVE); NITRITE NEGATIVE (NEGATIVE); PROTEIN NEGATIVE (NEGATIVE); UROBILINOGEN NORMAL (NORMAL)
[2017-05-20 20:28] LABS: BACTERIA FEW /hpf (NONE SEEN); RED CELLS - URINE 0-5 /hpf (0-5)
== END | disposition home or self-care (01) ==
LOC: D.LABREF 19:52
PROVIDERS: Urology
DX: R82.90 Unspecified abnormal findings in urine (principal)

== ENCOUNTER → 2017-07-15 11:10 | Outpatient (CLI) | payer MEDICARE, BC | END | disposition home or self-care (01) | LOC: D.RAD 11:10 | DX: C83.58 Lymphoblastic (diffuse) lymphoma, lymph nodes of multiple sites (principal) ==

== ENCOUNTER → 2018-07-17 11:31 | Outpatient (CLI) | payer MEDICARE, BC | END | disposition home or self-care (01) | LOC: D.HCCARDIO 11:31 | PROVIDERS: ATTEND Internal Medicine Cardiovascular Disease | DX: I25.10 Atherosclerotic heart disease of native coronary artery without angina pectoris (principal) ==

== ENCOUNTER 2018-07-27 06:19 | Outpatient (CLI) | payer MEDICARE, BC ==
[~2018-07-27] VITALS: Ht 188 cm; Wt 100.0 kg
--- NOTE | ~2018-07-27 | HEMODYNAMI ---
PATIENT:WAYNE MORROW MEDICAL RECORD: [id number] : 42 LOCATION:DMELINDA ADMISSION DATE: 07/27/18 Generatedon:07/27/20189:32 Patient name: WAYNE MORROW Patient #: [id number] SSN: : 1940 Date of study: 07/27/2018 Page: Of Hemodynamic Procedure Report Patient Data Patient Demographics Procedure consent was obtained First Name: WAYNE Gender: Male Last Name: CRISTHIAN : 1940 [facility] Initial: MICHELLE Age: 77 year(s) Patient #: [id number] Race: Unknown Additional ID: [id number] Contact details [address]: [address] [place] [address] State: [place] City: [place] Zip code: [address] Admission Admission Data Admission Date: 07/27/2018 Admission Time: 6:19 Procedure Procedure Types Cath Procedure Diagnostic Procedure LHC LHC w/Coronaries w/Grafts Sedation Charges Moderate Sedation up to 15 minutes Procedure Description Procedure Date Procedure Date: 07/27/2018 Procedure Start Time: 9:09 Procedure End Time: 9:32 Procedure Staff Name Function Gerber Joseph MD Performing Physician Brenda Jacobsen RT Monitor Abhilash Kamara RN Nurse Dixon Escalera RT Scrub Procedure Data Cath Procedure Fluoroscopy Diagnostic fluoroscopy Total fluoroscopy Time: 5 time: 5 min min Diagnostic fluoroscopy Total fluoroscopy dose: dose: 1147 mGy 1147 mGy Contrast Material Contrast Material Type Amount (ml) Isovue 300 112 Entry Location Entry Primary Successful Side Size Upsize Upsize Entry Closure Succes sful Closure Location (Fr) 1 (Fr) 2 (Fr) Remarks Device Remarks Femoral Right 5 Fr Exoseal artery Estimated blood loss: 5 ml Diagnostic catheters Device Type Used For End Catheter Placement DIAGNOSTIC JL 4.0 5Fr Left Coronary catheter ([id number]) Angiography DIAGNOSTIC AR MOD 5Fr Right Coronary Catheter ([id number]) Angiography DIAGNOSTIC AR MOD 5Fr SVG Angiography Catheter ([id number]) DIAGNOSTIC AR MOD 5Fr SVG Angiography Catheter ([id number]) DIAGNOSTIC IM 5Fr Internal mammary catheter ([id number]) arteriography DIAGNOSTIC Pigtail 5Fr LV Angiography catheter ([id number]) Procedure Complications No complications Procedure Medications Medication Administration Route Dosage 0.9% NaCl I.V. 100 ml/hr Oxygen etCO2 Nasal cannula 2 l/min Heparin Flush Bag added to field 2 bags (1000units/500ml NS) Lidocaine 2% added to field 20 Versed I.V. 1 mg Fentanyl I.V. 50 mcg Versed I.V. 0.5 mg Fentanyl I.V. 25 mcg Fentanyl I.V. 25 mcg Versed I.V. 0.5 mg Hemodynamics Rest Heart Rate: 62 (bpm) Pressure Samples Time Site Value (mmHg) Purpose Heart Use Rate(bpm) 9:24 LV 134/-2,12 EDP 66 9:25 AO 124/60(86) Pullback 65 9:25 LV 133/-4,11 Pullback 65 Gradients Valve Time Site 1 Site 2 Mean SEP/DFP Peak To Heart Use (mmHg) (sec/min) Peak Rate (mmHg) (bpm) Aortic 9:25 LV AO 9 21 9 65 133/-4,11 124/60(86) Calculations Valve P-P Mean Valve Index Valve Source Name Gradient Area Flow (cm2) Aortic 9 9 9 9 Snapshots Pre Cath Intra NCS Post Cath Vital Signs Time Heart Resp SPO2 etCO2 NIBP (mmHg) Rhythm Pain Sedation Rate (ipm) (%) (mmHg) Status Level (bpm) 8:50:18 62 13 98 22.3 134/78(102) NSR 0 (11) 10(A) , No pain 8:54:34 60 11 98 20 128/66(95) NSR 0 (11) 10(A) , No pain 8:58:48 62 18 97 0 127/62(101) NSR 0 (11) 10(A) , No pain 9:03:02 64 14 97 0 116/68(92) NSR 0 (11) 10(A) , No pain 9:07:14 62 19 98 16.3 131/61(90) NSR 0 (11) 10(A) , No pain 9:11:32 63 19 98 12.6 107/58(74) NSR 0 (11) 9(A) , No pain 9:15:36 63 19 97 26 126/74(87) NSR 0 (11) 9(A) , No pain 9:19:45 65 18 96 26 141/78(114) NSR 0 (11) 9(A) , No pain 9:24:01 64 18 96 23 145/73(111) NSR 0 (11) 9(A) , No pain 9:28:15 65 10 97 29.8 133/77(97) NSR 0 (11) 9(A) , No pain 9:32:23 63 14 97 23.8 114/61(90) NSR 0 (11) 9(A) , No pain Medications Time Medication Route Dose Verified Delivered Reason Notes Effe ctiveness by by 8:50:36 0.9% NaCl I.V. 100 Abhilash Abhilash Per ml/hr Asad Kamara physician RN RN 8:50:45 Oxygen etCO2 2 Abhilash Abhilash for low 02 Nasal l/min Lorigan Lorigan sats cannula RN RN 8:50:57 Heparin Flush added 2 Abhilash Abhilash used for Bag to bags Lorigan Lorigan procedure (1000units/500ml field RN RN NS) 8:51:18 Lidocaine 2% added 20ml Abhilash Abhilash for local to vial Lorigan Lorigan anesthetic field RN RN 9:04:08 Versed I.V. 1 mg Abhilash Abhliash for Lorigan Lorigan sedation RN RN 9:04:22 Fentanyl I.V. 50 Abhilash Abhilash for mcg Lorigan Lorigan sedation RN RN 9:09:57 Versed I.V. 0.5 Abhilash Abhilash for mg Lorigan Lorigan sedation RN RN 9:10:04 Fentanyl I.V. 25 Abhilash Abhilash for mcg Lorigan Lorigan sedation RN RN 9:12:17 Fentanyl I.V. 25 Abhilash Abhilash for mcg Lorigan Lorigan sedation RN RN 9:12:24 Versed I.V. 0.5 Abhilash Abhilash for mg Lorigan Lorigan sedation RN watch dial maker Log Time Note 7:53:50 Time tracking: Regular hours (M-F 7:00 - 5:00) 7:53:53 Plan of Care:Hemodynamics will remain stable., Cardiac rhythm will remain stable., Comfort level will be maintained., Respiratory function will remain adequate., Patient/ family verbilizes understanding of procedure., Procedure tolerated without complication., Recovers from procedure without complications.. 8:35:09 Abhilash Kamara RN sent for patient. Start room use. 8:39:56 Patient received from Pre/Post Procedure Room to CCL 2 Alert and oriented. Tansferred to table in Supine position. 8:39:58 Warm blankets applied, and stephanie hugger turned on for patient comfort. 8:39:58 Correct patient and procedure confirmed by team. 8:39:59 Signed procedure consent form obtained from patient. 8:40:00 ECG and BP/O2 sat monitors applied to patient. 8:40:01 Full Disclosure recording started 8:49:14 Vital chart was started 8:49:19 Rhythm: sinus rhythm 8:49:37 H&P Date Dictated: 07/06/2018 Within 30 days and on chart., H&P Addendum completed by physician on day of procedure. (MUST COMPLETE FOR ALL OUTPATIENTS). 8:49:38 Pre-procedure instructions explained to patient. 8:49:39 Pre-op teaching completed and patient verbalized understanding. 8:49:40 Family in waiting room. 8:49:41 Patient NPO since Midnight. 8:50:36 0.9% NaCl 100 ml/hr I.V. was administered by Abhilash Kamara RN; Per physician; 8:50:45 Oxygen 2 l/min etCO2 Nasal cannula was administered by Abhliash Kamara RN; for low 02 sats; 8:50:46 Is the patient allergic to Iodine/contrast media? No. 8:50:57 Heparin Flush Bag (1000units/500ml NS) 2 bags added to field was administered by Abhilash Kamara RN; used for procedure; 8:50:57 Is patient on blood thinner?No 8:51:03 Baseline sample Acquired. 8:51:15 Patient diabetic? No. 8:51:18 Lidocaine 2% 20ml vial added to field was administered by Abhilash Kamara RN; for local anesthetic; 8:51:23 Previous problem with sedation/anesthesia? No ? 8:51:24 Snore? Yes 8:51:25 Sleep apnea? No 8:51:26 Deviated septum? No 8:51:27 Opens mouth fully? Yes 8:51:28 Sticks out tongue? Yes 8:51:29 Airway obstruction? No ? 8:51:32 Dentures? Yes in 8:51:36 Pre procedure: right dorsailis pedis pulse 2+ Normal; easily identifiable; not easily obliterated 8:51:39 Patient pain scale 0/10 ?. 8:51:47 IV patent on arrival in left forearm with 0.9% NaCl at [facility]. 8:51:49 Lab results completed and on chart. 8:51:54 Right groin area was prepped with chlora-prep and draped in sterile fashion 8:51:55 Alarms reviewed by R. N. 8:51:55 Sharps counted by scrub and verified by R.N. 8:52:03 ACIST Syringe (42699) opened to sterile field. 8:52:04 Bag Decanter (2002S) opened to sterile field. 8:52:04 Medline Cath Pack ([id number]) opened to sterile field. 8:52:05 DIAGNOSTIC WIRE .035 260cm J wire (668929) opened to sterile field. 8:52:06 ACIST Hand Control (82096) opened to sterile field. 8:52:07 ACIST Manifold (97418) opened to sterile field. 8:52:08 Tegaderm 4 x 4 (1626W) opened to sterile field. 8:52:09 SHEATH 5FR [place] (IDM869) opened to sterile field. 8:58:29 Zero performed for pressure channel P1 8:58:33 Zero performed for pressure channel P1 8:58:36 Zero performed for pressure channel P1 9:03:16 Final Timeout: patient, procedure, and site verified with staff and physician. All members of the team are in agreement. 9:03:20 Right groin site verified by team. 9:03:24 Maximum allowable Isovue 300 dose 300ml. Physician notified. (300ml for normal creatinines. For patients with creatinine of 1.7 or higher multiply weight(kg) x 5 divided by creatinine.) 9:03:29 Fire Safety Assessment: A--An alcohol-based skin anteseptic being used preoperatively., C--Open oxygen or nitrous oxide is being used., D--An ESU, laser, or fiber-optic light is being used. 9:03:33 Physical assessment completed. ASA score P 2 - A patient with mild systemic disease as per Gerber Joseph MD. 9:03:36 Sedation plan: IV Moderate Sedation Medication:Versed, Fentanyl 9:04:08 Versed 1 mg I.V. was administered by Abhilash Kamara RN; for sedation; 9:04:22 Fentanyl 50 mcg I.V. was administered by Abhilash Kamara RN; for sedation; 9:08:55 Zero performed for pressure channel P1 9:09:16 Procedure started. 9:09:25 Local anesthetic to right femoral artery with Lidocaine 2% by Gerber Joseph MD.INITIAL ACCESS ONLY 9:09:57 Versed 0.5 mg I.V. was administered by Abhilash Kamara RN; for sedation; 9:10:04 Fentanyl 25 mcg I.V. was administered by Abhilash Kamara RN; for sedation; 9:12:11 A 5 Fr sheath was inserted into the Right Femoral artery 9:12:17 Fentanyl 25 mcg I.V. was administered by Abhilash Kamara RN; for sedation; 9:12:24 Versed 0.5 mg I.V. was administered by Abhilash Kamara RN; for sedation; 9:12:32 WHOLEY wire advanced. 9:13:33 A DIAGNOSTIC JL 4.0 5Fr catheter ([id number]) was advanced over the wire and used for Left Coronary Angiography. 9:16:38 Catheter removed. 9:16:47 A DIAGNOSTIC AR MOD 5Fr Catheter ([id number]) was advanced over the wire and used for Right Coronary Angiography. 9:17:39 A DIAGNOSTIC AR MOD 5Fr Catheter ([id number]) was advanced over the wire and used for SVG Angiography. TO RCA 9:18:23 A DIAGNOSTIC AR MOD 5Fr Catheter (759392P) was advanced over the wire and used for SVG Angiography. TO DIAG2/OM 9:19:52 Catheter removed. 9:20:52 A DIAGNOSTIC IM 5Fr catheter ([id number]) was advanced over the wire and used for Internal mammary arteriography. UNABLE TO ADVANCE WIRE UP SUBCLAVIAN 9:20:58 WHOLEY wire advanced. 9:22:38 Wire removed. 9:23:00 WHOLEY 300cm 0.035 wire ([id number]) opened to sterile field. 9:23:49 Catheter removed. 9:24:43 A DIAGNOSTIC Pigtail 5Fr catheter (349065Q) was advanced over the wire and used for LV Angiography. 9:25:00 LV gram done using TUCKER 9:25:03 Injector settings: Ml/sec: 10, Volume: 20, 9:25:21 EF : 55 % 9::49 Catheter removed. 9::28 Sheath removed intact; hemostasis achieved with Exoseal to the Right Femoral artery. 9::31 Procedure ended.(Physican Out) 9:26:46 Fluoroscopy time 05.00 minutes. 9::52 Fluoroscopy dose: 1147 mGy 9::52 Flurop Dose total: 1147 9::55 Contrast amount:Isovue 300 112ml. 9:26:56 Sharps counted by scrub and verified by R.N. 9::57 Insertion/operative site no bleeding no hematoma. 9:27:00 Post-op/insertion site Right Femoral artery dressed using a 4 x 4 and Tegaderm. 9:27:04 Post right femoral artery:stable, clean and dry 9:27:05 Post Procedure Pulses reassessed and unchanged 9:27:08 Post-procedure physical assessment completed. ASA score P 2 - A patient with mild systemic disease as per Gerber Joseph MD. 9:27:11 Post procedure rhythm: unchanged. 9:27:12 Estimated blood loss: 5 ml 9:27:14 Post procedure instruction explained to patient.Patient verbalizes understanding. 9:27:14 Patient needs reinforcement of post procedure teaching. 9:27:35 EXOSEAL 5Fr (EX500) opened to sterile field. 9:27:53 Procedure type changed to Cath procedure, Diagnostic procedure, LHC, LHC w/Coronaries w/Grafts, Sedation Charges, Moderate Sedation up to 15 minutes 9:27:58 Procedure Complication : No complications 9:28:00 See physician's report for complete and final results. 9:28:37 Procedure and supply charges have been captured, reviewed, submitted and are correct. 9::55 Vital chart was stopped 9:32:00 Report given to Pre/Post Procedure Room. 9:32:02 Patient transfered to Pre/Post Procedure Room with Stretcher. 9:32:24 Procedure ended. 9:32:24 Full Disclosure recording stopped 9:32:28 End room use (Document Last) Device Usage Item Name Manufacture Quantity Catalog Hospital Part Current Minimal L ot# / Number Charge Number Stock Stock Serial# Code [facility] 1 01955 259627 962434 237257 20 Syringe Medical (87678) Systems Inc Bag Microtek 1 2001S 119029 77555 779835 5 Decanter Medical Inc. (2001S) Medline Medline 1 [id number] 129575 99749 599321 5 Cath Pack ([id number]) DIAGNOSTIC [facility] [place] 1 520302 990010 713024 642429 30 WIRE .035 260cm J wire (952814) ACIST Hand Acist 1 73136 381965 211289 321412 5 Control Medical (44762) Systems Inc ACIST Acist 1 97444 524480 699962 419595 5 Manifold Medical (76526) Systems Inc Tegaderm 4 3M 1 1626W 131495 204161 705893 5 x 4 (1626W) SHEATH 5FR Terumo 1 [id number] 910655 861045 732777 5 [place] (AJT147) DIAGNOSTIC Cardinal 1 161457O 710769 538166 079093 10 JL 4.0 5Fr Health catheter (093011B) DIAGNOSTIC Cardinal 1 [id number] 354139 463858 367600 15 AR MOD 5Fr Health Catheter (939436W) DIAGNOSTIC Cardinal 1 605391B 709120 078176 021157 5 IM 5Fr Health catheter (706971K) WHOLEY Medtronic 1 [id number] 695731 278916 425689 3 300cm 0.035 wire ([id number]) DIAGNOSTIC Cardinal 1 [id number] 535285 126057 798765 5 Pigtail 5Fr Health catheter (808883U) EXOSEAL 5Fr Cardinal 1 EX500 390006 994814 937221 10 (EX500) Health Signature Audit Jean Stage Time Signature Unsigned Intra-Procedure 07/27/2018 Brenda 9:32:40 AM Counts RT(R) Signatures Monitor : Brenda Signature : Counts RT Date : Time : [facility] [address] [place] [address]
[2018-07-27] MEDS ORDERED: PEPCID AC20 MG PO (06:56)
[2018-07-27] MEDS ORDERED: RITALIN10 MG PO (06:57)
[2018-07-27] MEDS ORDERED: REQUIP5 MG PO (06:57)
[2018-07-27] MEDS ORDERED: MIRALAX17 GM PO (06:58)
[2018-07-27] MEDS ORDERED: TIMOPTIC 0.5 % O5 ML EACH EYE (06:58)
[2018-07-27] MEDS ORDERED: CENTRUM MEN'S1 EACH PO (06:59)
[2018-07-27 07:14] VITALS: BP 139/73; Ht 188 cm; Wt 100.0 kg
[2018-07-27 07:34] LABS: BASOPHILS 0.6 % (0-2); EOSINOPHILS 2.6 % (0-7); HEMATOCRIT 36.6 % (42.0-54.0); HEMOGLOBIN 12.7 g/dL (13.5-17.5); LYMPHOCYTES 47.4 % (15-50); MCH 32.2 pg (26.0-34.0); MCHC 34.7 g/dL (31.0-37.0); MCV 92.7 fL (80.0-100.0); MONOCYTES 15.6 % (2-11); NEUTROPHILS 33.8 % (40-80); PLATELET COUNT 215 10x3/uL (130-400); RBC 3.95 10x6/uL (4.20-6.10); RDW 12.4 % (11.5-14.5); WBC 5.4 10x3/uL (4.8-10.8)
[2018-07-27 07:35] LABS: ANION GAP 14.7 mmol/L (8-16); CARBON DIOXIDE 25.4 mmol/L (21.0-32.0); CREATININE - SERUM 1.2 mg/dL (0.6-1.3); POTASSIUM - SERUM 4.1 mmol/L (3.5-5.1)
--- NOTE | 2018-07-27 09:55 | NUR ---
2L NC, NO RESP DISTRESS. RIGHT GROIN 5F EXOSEAL CDI, NO BLEEDING OR HEMATOMA NOTED. NO C/O PAIN OR NAUSEA. VSS. FAMILY AT BEDSIDE, CALL LIGHT WITHIN REACH.
--- NOTE | 2018-07-27 10:13 | NUR ---
PT SLEEPING INTERMITTENTLY, AWAKENS EASILY AND DENIES ANY C/O. DRESSING IS CDI TO RIGHT GROIN, AREA IS SOFT AND NONTENDER. PEDAL PULSES PALPABLE. RESP WITH EASE ON O2 AT 2LPM VIA NC. VSS, HOB IS FLAT, CALL LIGHT IN REACH.
--- NOTE | 2018-07-27 10:35 | NUR ---
RESTING QUIETLY WITH EYES CLOSED. RIGHT GROIN 5F EXOSEAL CDI, NO BLEEDING OR HEMATOMA NOTED. NO C/O AT THIS TIME. VSS. WILL CONTINUE TO MONITOR.
--- NOTE | 2018-07-27 11:00 | NUR ---
HOB ELEVATED 30 DEGREES. RIGHT GROIN 5F EXOSEAL CDI, NO BLEEDING NOTED. SIPPING ON DRINK AND EATING SANDWICH WITH NO C/O NAUSEA. VSS. WILL CONTINUE TO MONITOR CLOSELY.
--- NOTE | 2018-07-27 11:40 | NUR ---
LEFT PIV D/C'D WITH CATHETER INTACT, BAND AID TO SITE. RIGHT GROIN 5F EXOSEAL CDI, NO BLEEDING OR HEMATOMA NOTED. UP TO BEDSIDE TO GET DRESSED. AMBULATED TO RESTROOM.
--- NOTE | 2018-07-27 11:50 | NUR ---
DISCHARGE INSTRUCTIONS GIVEN TO PT AND , BOTH VERBALIZED UNDERSTANDING.
--- NOTE | 2018-07-27 12:00 | NUR ---
TAKEN OUT VIA WHEELCHAIR BY CATH NATIONAL GUARD MEMBER. LEFT FACILITY WITH FAMILY AND ALL PERSONAL BELONGINGS.
== END 2018-07-27 12:00 | disposition home or self-care (01) ==
LOC: D.CATH 06:19
PROVIDERS: ATTEND Internal Medicine Cardiovascular Disease
DX: I25.119 Atherosclerotic heart disease of native coronary artery with unspecified angina pectoris (principal); Z95.1 Presence of aortocoronary bypass graft; Z01.812 Encounter for preprocedural laboratory examination

== ENCOUNTER → 2018-12-18 16:42 | Outpatient (CLI) | payer MEDICARE, BC ==
[2018-07-27 07:14] VITALS: BMI 28.3
[~2018-12-18 16:42] MED LIST changes: +CENTRUM MEN'S1 EACH PO; +MIRALAX17 GM PO; +PEPCID AC20 MG PO; +TIMOPTIC 0.5 % O5 ML EACH EYE
== END | disposition home or self-care (01) ==
LOC: D.LABREF 16:42
PROVIDERS: ATTEND Urology
DX: R31.9 Hematuria, unspecified (principal)

== ENCOUNTER → 2019-01-29 17:10 | Outpatient (CLI) | payer MEDICARE, BC ==
[2018-07-27 07:14] VITALS: BMI 28.3
== END | disposition home or self-care (01) ==
LOC: D.LABREF 17:10
PROVIDERS: ATTEND Urology
DX: N39.0 Urinary tract infection, site not specified (principal)

== ENCOUNTER → 2019-07-10 17:29 | Outpatient (CLI) | payer MEDICARE, BC ==
[2018-07-27 07:14] VITALS: BMI 28.3
== END | disposition home or self-care (01) ==
LOC: D.LABREF 17:29
PROVIDERS: ATTEND Urology
DX: N39.0 Urinary tract infection, site not specified (principal)

== ENCOUNTER 2020-06-10 15:15 | Inpatient (IN) | payer MEDICARE, BC ==
[~2020-06-10] VITALS: Ht 188 cm; Wt 100.0 kg
[2020-07-09] MEDS ORDERED: PRESERVISION PO (13:00)
[2020-07-09] MEDS ORDERED: TENORMIN25 MG PO (13:00)
[2020-07-09] MEDS ORDERED: TRAZODONE HCL150 MG PO (13:01)
[2020-07-09] MEDS ORDERED: CRESTOR20 MG PO (13:01)
[2020-07-09] MEDS ORDERED: LUNESTA2 M1 PO (13:02)
[2020-07-09 13:03] LABS: BILIRUBIN NEGATIVE (NEGATIVE); KETONE NEGATIVE (NEGATIVE); NITRITE NEGATIVE (NEGATIVE); UROBILINOGEN NORMAL mg/dL (< 2); WHITE CELLS - URINE 25-50 HPF (0-1)
[2020-07-09] MEDS ORDERED: PLAVIX75 MG PO (13:03)
[2020-07-09 13:04] LABS: BACTERIA FEW HPF (NONE SEEN); SQUAMOUS EPITHELIAL 0-5 HPF (0-4)
[2020-07-09 13:54] LABS: BASOPHILS 0.5 % (0-2); EOSINOPHILS 1.9 % (0-7); HEMATOCRIT 38.3 % (42.0-54.0); HEMOGLOBIN 12.6 g/dL (13.5-17.5); IMMATURE GRANULOCYTES 0.2 % (0-5); LYMPHOCYTE ABS# 2.78 10x3/uL (1.32-3.57); LYMPHOCYTES 44.1 % (15-50); MCH 30.9 pg (26.0-34.0); MCHC 32.9 g/dL (31.0-37.0); MCV 93.9 fL (80.0-100.0); MONOCYTES 12.7 % (2-11); NEUTROPHIL ABS# 2.56 10x3/uL (1.78-5.38); NEUTROPHILS 40.6 % (40-80); PLATELET COUNT 187 10x3/uL (130-400); RBC 4.08 10x6/uL (4.20-6.10); RDW 13.1 % (11.5-14.5); WBC 6.3 10x3/uL (4.8-10.8)
[2020-07-09 13:55] LABS: ANION GAP 11.8 mmol/L (8-16); CALCIUM 9.4 mg/dL (8.5-10.1); CARBON DIOXIDE 29.3 mmol/L (21.0-32.0); CREATININE - SERUM 1.1 mg/dL (0.6-1.3); POTASSIUM - SERUM 4.1 mmol/L (3.5-5.1)
[2020-07-09 13:59] LABS: INR 1.24 (0.85-1.17); PROTIME 14.5 SECONDS (11.6-15.0)
[2020-07-09 14:00] LABS: APTT 36.1 SECONDS (22.8-39.4)
[2020-07-15] VITALS (7 sets, daily range): BP systolic 111–138; BP diastolic 66–80; Ht 188 cm; Wt 100.0 kg
--- NOTE | 2020-07-15 06:50 | NUR ---
WILL STRAIGHT CATH PT PER ORDER. NEED TO CHECK FOR UTI.
[2020-07-15 07:57] LABS: BILIRUBIN NEGATIVE (NEGATIVE); KETONE NEGATIVE (NEGATIVE); NITRITE NEGATIVE (NEGATIVE); UROBILINOGEN NORMAL mg/dL (< 2); WHITE CELLS - URINE OCC HPF (0-1)
[2020-07-15 07:58] LABS: BACTERIA FEW HPF (NONE SEEN); SQUAMOUS EPITHELIAL 0-5 HPF (0-4)
--- NOTE | 2020-07-15 12:30 | NUR ---
PT ARRIVED FROM PACU STABLE WITH EQUAL NON LABORED RR. A/O X4. REPORT GIVEN PT HAD NOT REC' ANY PAIN MED IN RECOVERY R/T PT HAD SPINAL AND WAS NOT HAVING ANY PAIN HOWEVER DURING TRANSPORT OVER TO MED 3 PT REPORTS GETTING SOME FEELING BACK. PT REPORTS DURING ADMISSION ASSESSMENT PAIN 7/10. PRN PAIN MED GIVEN PER EMAR. PT DENIES ANY OTHER COMPLAINTS AT PRESENT TIME. WILL CONT TO MONITOR.
--- NOTE | 2020-07-15 16:06 | OP ---
PATIENT NAME: WAYNE MORROW MEDICAL RECORD: [id number] :42 LOCATION:D.M3 D.1212 ADMISSION DATE:07/15/20 SURGEON: NILAY ENG DO DATE OF OPERATION: 07/15/2020 PROCEDURE PERFORMED: Left total knee arthroplasty. PREOPERATIVE DIAGNOSIS: Left knee osteoarthritis. POSTOPERATIVE DIAGNOSIS: Left knee osteoarthritis. INDICATIONS: Mr. Morrow is a 79-year-old male who has had left knee arthritis for quite some time. He has tried all manner of nonoperative treatment for this and he has gotten to the point where it was affecting his activities of daily living. He was aware of the risks including infection, bleeding, damage to nerves and vessels, need for further surgery, continued pain, fracture, loosening of implants, failure of implants, blood clots and even and he signed a consent. He was also aware of his increased risk of infection to his self-cathing. SURGEON: Nilay Eng DO DESCRIPTION THE PROCEDURE: The patient received a spinal block by anesthesia in the preoperative area. He was taken to the operative suite, laid in the supine position, given light TIVA, given 2 grams of Ancef, 80 mg of gentamicin. The left lower extremity was then prepped and draped in sterile fashion. Timeout was performed. Everyone was in agreeance with the correct side, site, patient and procedure. I began by marking out the incision over the anterior knee and covered in Ioban. I then made an incision with a #10 blade scalpel through the skin, made with careful dissection down to the capsule. I then used a fresh 10-blade to the medial parapatellar approach. Any bleeding was coagulated with Aquamantys throughout the procedure. I then everted the patella and took off the osteophytes with a rongeur. Milled down the patella, drilled the holes for a 32, 3 peg patella and flexed up the femur, removed all osteophytes and went to the femoral canal, removed the ACL, put the intramedullary guide and after irrigating and then cut the distal femur after the distal femoral intramedullary guide, exposed the proximal tibia, removed part of the menisci and more the fat pad and cut the proximal tibia through a guide. I then brought the knee into extension, used a lamina school age lead teacher and [employer] removed the rest of the menisci, coagulated any bleeding and removed any other osteophytes, put 10 extension block and it fit very well. I then flexed the knee up, sized the femur to be an 11, drilled and then put an 4-in-1 cutting block on. I then used rupinder wing to ensure there was no notching. I then cut through the 4-in-1 cutting block and removed the bone. I then exposed the tibia, sized it to be a G, pinned it into place and put on the trial femur, put a poly in between went up to a 12, the 12 fit very well and had good range of motion and good stability to varus valgus stress in flexion and extension. I then drilled the lug holes for the femur, and drilled and reamed the tibia as well and put extra holes in it while the cement was mixed and then irrigated the tibia, put cement on the implants and in the tibia as well as on the patella, impacted the tibia into place, removing excess cement and impacted it, pressed the femur on and then put a poly in between, brought the knee into extension, removed any excess cement that squeezed off the tibia. I then irrigated the patella, put cement in the patellar holes and on the implant, squeezed it into place, removed excess cement. We put 10% povidone iodine and 500 mL of normal saline solution in the OPERATIVE REPORT [id number] CRISTHIAN,WAYNE MICHELLE knee, let it sit for a couple of minutes, irrigated out with over a liter of normal saline. I then injected a joint cocktail about the knee and around the capsule. I then trialed the 12, the 12 fit very well and put a 12 medial congruent bearing poly in and squeezed it into place. I then ranged the knee, ranged very well and was very stable in varus valgus stress in flexion and extension. I then closed the capsule with #1 Vicryl in uouxfd-ak-[id number] fashion and then Orlando De La Torre, certified surgical assistant boys track coach after we put in Zi and vancomycin and tobramycin powder in the knee joint, closed the capsule with a running Quill stitch. He then closed the skin with 2-0 Vicryl in inverted interrupted fashion, put a ZipLine, Adaptic, 4 x 4s, ABD, cast padding and Rico wrap on the knee. He was then awakened and taken to recovery in stable condition. Blood loss was approximately 300 mL. He was given a gram of TXA also at closing. COMPLICATIONS: None. TRANSINT:[id number] Voice Confirmation ID: [id number] DOCUMENT ID: [id number] NILAY ENG DO at 1606 CC: [id number] DICTATION DATE: 07/15/20 1043 CERTIFIED OPHTHALMIC TECHNICIAN: 07/15/20 1438 ADM IN [facility] [place] [address] [place] [address]
--- NOTE | 2020-07-15 18:48 | MORECARE ---
CASE MANAGEMENT DISCHARGE SUMMARY PATIENT: WAYNE MORROW DOYLE UNIT: [id number] ADM DATE: 07/15/20 AGE: 79 : 41 SEX: M ROOM/BED: D.1212 AUTHOR: CHONG HAYES PHYSICIAN: REFERRING PHYSICIAN: TONY ENG DO DATE OF SERVICE: 07/15/20 Discharge Plan Patient Name: WAYNE MORROW [facility] [facility] 1940 Planned Disposition: Home with Home Health Anticipated Discharge Date: 07/16/20 Discharge Date: Expected LOS: 1 Initial Reviewer: RANDEE Initial Review Date: 07/15/2020 Generated: 07/15/20 7:47 pm DCPIA - Discharge Planning Initial Assessment Updated by [email or web address]: Anshul Doss on 07/15/20 6:48 pm * Is the patient Alert and Oriented? Yes * How many steps to enter\exit or inside your home? Multiple * PCP MEME MIRANDA * Pharmacy [facility] [place] the [place] * Preadmission Environment Home with Family * ADLs Independent * Equipment Elevated Toliet Seat Walker * Other Equipment CPM * List name and contact numbers for known caregivers / representatives who currently or will assist patient after discharge: DANIEL MORROW (SPOUSE) [phone] * Verbal permission to speak to the caregivers and representatives has been obtained from the patient. Yes * Community resources currently utilized None * Please name any agencies selected above. n/a * Additional services required to return to the preadmission environment? Yes * Can the patient safely return to the preadmission environment? Yes * Has this patient been hospitalized within the prior 30 days at any hospital? No External Providers External Provider: [facility] Next Contact Date: Service Request Date: Service Type: Resolution: Reviewer: Comments: Patient Name: WAYNE MORROW Page [phone] at 1848 All edits/amendments must be made on the electronic document DICTATION DATE: 07/15/201847 BUTTON MAKER: SHAUN 07/15/201847 RPT#: [id number] DC DATE: STATUS: ADM IN [facility] [address] [facility] [place] [address] END OF REPORT
--- NOTE | 2020-07-15 19:38 | MORECARE ---
CASE MANAGEMENT DISCHARGE SUMMARY PATIENT: WAYNE MORROW UNIT: [id number] ADM DATE: 07/15/20 AGE: 79 : 41 SEX: M ROOM/BED: D.1212 AUTHOR: CHONG HAYES PHYSICIAN: REFERRING PHYSICIAN: TONY ENG DO DATE OF SERVICE: 07/15/20 Discharge Plan Patient Name: WAYNE MORROW Facility: [facility]:[place] : 1940 Planned Disposition: Home with Home Health Anticipated Discharge Date: 07/16/20 Discharge Date: Expected LOS: 1 Initial Reviewer: [email or web address] Initial Review Date: 07/15/2020 Generated: 07/15/20 8:37 pm Comments DCP- Discharge Planning Updated by [email or web address]: Anshul Doss on 07/15/20 6:[address] CM met with patient to complete DC plan and to evaluate needs. Patient lives independently at home with his spouse, Yossi Morrow. At discharge, the patient plans to return home and feels this is a safe discharge. CM discussed availability of home health, rehab services, and medical equipment. Patient declined SNF, IPR, and DME. Patient stated that [facility] called him and delivered a CPM, elevated toilet seat, and walker. Patient declined outpatient Physical therapy. Patient stated that his is driving to [place] weekly to help with grandchildren and he does not know if he will be able to drive himself to outpatient therapy. Patient stated that he would like to speak to Dr. Eng about knee restrictions for driving. Patient stated that at this time it "...seems easier if they come to me, if my insurance will allow it". CM encouraged patient to speak with Dr Eng regarding physical therapy and perhaps changing to outpatient physical therapy. Patient stated that if after speaking to Dr. Eng, and it is decided for OP therapy, then his choice would be for [facility]. At this time the patient is choosing to have HH/Pt with [facility]. AVA signed and placed on chart. Patient voiced no other needs at this time and is satisfied with DC plan. Spoke with Jocelyn of [facility]. Jocelyn stated that SOC will be determined after clinicals are evaluated in the morning. DC IMM delivered, explained, signed by the patient, and placed in chart. Signed form also left with the patient. CM will continue to follow and will assist as needed with dc plans/needs. DCPIA - Discharge Planning Initial Assessment Updated by RANDEE: Anshul Doss on 07/15/20 6:48 pm * Is the patient Alert and Oriented? Yes * How many steps to enter\\exit or inside your home? Multiple * PCP MEME MIRANDA * Pharmacy [facility] near the [facility] * Preadmission Environment Home with Family * ADLs Independent * Equipment Elevated Toliet Seat Walker * Other Equipment CPM * List name and contact numbers for known caregivers / representatives who currently or will assist patient after discharge: YOSSI MORROW (SPOUSE) [phone] * Verbal permission to speak to the caregivers and representatives has been obtained from the patient. Yes * Community resources currently utilized None * Please name any agencies selected above. n/a * Additional services required to return to the preadmission environment? Yes * Can the patient safely return to the preadmission environment? Yes * Has this patient been hospitalized within the prior 30 days at any hospital? No External Providers External Provider: OTHER-OTHER Next Contact Date: Service Request Date: Service Type: Resolution: Reviewer: Comments: Coverage Notice Reviewer: [email or web address] Doss Notice Issued Date-Time: 07/15/2020 16:30 Notice Type: Patient Choice Letter Notice Delivered To: Patient Relationship to Patient: Self Nut Sifter Name: Delivery Method: HAND - Hand Delivered Mitzy Days: Prior Verbal Notification: Recipient Understood Notice: Yes Recipient Signature: Yes Med Rec Note Co-signed by Attending: Coverage Notice Comment: [facility] Reviewer: [email or web address] Doss Notice Issued Date-Time: 07/15/2020 16:30 Notice Type: IM Discharge Notice Notice Delivered To: Patient Relationship to Patient: Self Nut Sifter Name: Delivery Method: HAND - Hand Delivered Mitzy Days: Prior Verbal Notification: Recipient Understood Notice: Yes Recipient Signature: Yes Med Rec Note Co-signed by Attending: Coverage Notice Comment: DC IMM delivered, explained, signed by the patient, and placed in chart. Last DP export: 07/15/20 5:48 pm Patient Name: WAYNE MORROW Page [phone] at 1938 All edits/amendments must be made on the electronic document DICTATION DATE: 07/15/201936 ARABIC TEACHER: SHAUN 07/15/201936 RPT#: [id number] DC DATE: STATUS: ADM IN [facility] [address] [place] [address] END OF REPORT
--- NOTE | 2020-07-15 19:45 | MORECARE ---
CASE MANAGEMENT DISCHARGE SUMMARY PATIENT: WAYNE MORROW UNIT: [id number] ADM DATE: 07/15/20 AGE: 79 : 41 SEX: M ROOM/BED: D.1212 AUTHOR: CHONG HAYES PHYSICIAN: REFERRING PHYSICIAN: TONY ENG DO DATE OF SERVICE: 07/15/20 Discharge Plan Patient Name: WAYNE MORROW Facility: [facility]:[place] : 1940 Planned Disposition: Home with Home Health Anticipated Discharge Date: 07/16/20 Discharge Date: Expected LOS: 1 Initial Reviewer: [email or web address] Initial Review Date: 07/15/2020 Generated: 07/15/20 8:44 pm Comments DCP- Discharge Planning Updated by [email or web address]: Anshul Doss on 07/15/20 6:[address] CM met with patient to complete DC plan and to evaluate needs. Patient lives independently at home with his spouse, Yossi Morrow. At discharge, the patient plans to return home and feels this is a safe discharge. CM discussed availability of home health, rehab services, and medical equipment. Patient declined SNF, IPR, and DME. Patient stated that [facility] called him and delivered a CPM, elevated toilet seat, and walker. Patient declined outpatient Physical therapy. Patient stated that his is driving to [place] weekly to help with grandchildren and he does not know if he will be able to drive himself to outpatient therapy. Patient stated that he would like to speak to Dr. Eng about knee restrictions for driving. Patient stated that at this time it "...seems easier if they come to me, if my insurance will allow it". CM encouraged patient to speak with Dr Eng regarding physical therapy and perhaps changing to outpatient physical therapy. Patient stated that if after speaking to Dr. Eng, and it is decided for OP therapy, then his choice would be for [facility]. At this time the patient is choosing to have HH/Pt with [facility]. AVA signed and placed on chart. Patient voiced no other needs at this time and is satisfied with DC plan. Spoke with Jocelyn of [facility]. Jocelyn stated that SOC will be determined after clinicals are evaluated in the morning. DC IMM delivered, explained, signed by the patient, and placed in chart. Signed form also left with the patient. CM will continue to follow and will assist as needed with dc plans/needs. DCPIA - Discharge Planning Initial Assessment Updated by RANDEE: Anshul Doss on 07/15/20 6:48 pm * Is the patient Alert and Oriented? Yes * How many steps to enter\\exit or inside your home? Multiple * PCP MEME MIRANDA * Pharmacy [facility] near the [facility] * Preadmission Environment Home with Family * ADLs Independent * Equipment Elevated Toliet Seat Walker * Other Equipment CPM * List name and contact numbers for known caregivers / representatives who currently or will assist patient after discharge: YOSSI MORROW (SPOUSE) [phone] * Verbal permission to speak to the caregivers and representatives has been obtained from the patient. Yes * Community resources currently utilized None * Please name any agencies selected above. n/a * Additional services required to return to the preadmission environment? Yes * Can the patient safely return to the preadmission environment? Yes * Has this patient been hospitalized within the prior 30 days at any hospital? No Coverage Notice Reviewer: RANDEE Doss Notice Issued Date-Time: 07/15/2020 16:30 Notice Type: Patient Choice Letter Notice Delivered To: Patient Relationship to Patient: Self Account Support Specialist Name: Delivery Method: HAND - Hand Delivered Mitzy Days: Prior Verbal Notification: Recipient Understood Notice: Yes Recipient Signature: Yes Med Rec Note Co-signed by Attending: Coverage Notice Comment: [facility] Reviewer: [id number] Doss Notice Issued Date-Time: 07/15/2020 16:30 Notice Type: IM Discharge Notice Notice Delivered To: Patient Relationship to Patient: Self Account Support Specialist Name: Delivery Method: HAND - Hand Delivered Mitzy Days: Prior Verbal Notification: Recipient Understood Notice: Yes Recipient Signature: Yes Med Rec Note Co-signed by Attending: Coverage Notice Comment: DC IMM delivered, explained, signed by the patient, and placed in chart. Last DP export: 07/15/20 6:38 pm Patient Name: WAYNE MORROW Page [id number] at 1945 All edits/amendments must be made on the electronic document DICTATION DATE: 07/15/201943 FITNESS WORKER: SHAUN 07/15/201943 RPT#: [id number] DC DATE: STATUS: ADM IN [facility] [address] [place] [address] END OF REPORT
[2020-07-16] VITALS: BP 108/53
[2020-07-16 04:20] VITALS: BP 110/54
--- NOTE | 2020-07-16 08:00 | NUR ---
AWAKE AND ALERT. ORIENTED X3. LUNGS ARE CLEAR BILATERALLY, NO COUGH NOTED. SKIN IS INTACT WITHOUT REDNESS EXCEPT INCISION TO LEFT KNEE WHICH HAS A DRY INTACT DRESSING IN PLACE. IV TO RIGHT FOREARM IS PATENT WITHOUT REDNESS AT INSERTION SITE. BREAKFAST SERVED IN ROOM. FEEDS SELF. DENIES NEEDS.
--- NOTE | 2020-07-16 08:10 | CN ---
PATIENT NAME:WAYNE MORROW MEDICAL RECORD: [id number] : 42 LOCATION:D. D.1212 ADMIT DATE: 07/15/20 ACCOUNT: [id number] CONSULTING PHYSICIAN: CARLOTTA MIRANDA MD REFERRING PHYSICIAN: TONY ENG DO DATE OF CONSULTATION: 07/15/2020 MEDICAL CONSULTATION ADMITTING PHYSICIAN: Dr. Tony Eng. REASON FOR CONSULTATION: Medical management of a patient postoperative left total knee replacement and history of pyuria. HISTORY OF PRESENT ILLNESS: The patient is a 79-year-old male with history of urinary retention. He does chronic self-catheterizations. He was scheduled for a left total knee replacement. Preoperatively, he had extensive dental work done to lower his risk for infection. The patient catheterizes himself and had no recent urinary symptoms, however, had a preoperative urinalysis done on the showing some pyuria and bacteriuria. A culture apparently was not ordered, but an antibiotic was, which he has taken 5 doses, type unknown. He is now immediately postop feeling well. The nurse thought he had a negative urine culture, but none was ordered on the . He had a culture that showed pseudomonas in his urine in 2019 that was sensitive to antibiotics. For that reason, we will start Levaquin at this time after culturing him. His admission urinalysis today is unremarkable. PAST MEDICAL HISTORY: Coronary artery disease, post bypass grafting, history of sick sinus syndrome, post pacemaker placement with 7 years left on his generator, history of cataracts, urinary retention, osteoarthritis, BPH, CAD, hyperlipidemia, glaucoma, hypertension, malignant lymphoma, migraines, peptic ulcer disease. HOME MEDICATIONS: Clopidogrel 75 mg daily, which he has held; famotidine 20 mg p.o. in the evening; methylphenidate 10 mg as needed for driving; lisinopril 20 mg p.o. daily; eszopiclone 2 mg p.o. at bedtime p.r.n. sleep; gemfibrozil 600 mg p.o. b.i.d., Centrum Silver 1 daily; timolol maleate 0.5% eye drops 2 drops in both eyes daily; PreserVision AREDS capsule b.i.d.; MiraLax 17 grams p.o. daily. ALLERGIES: TO NSAIDS. FAMILY HISTORY: Noncontributory. SOCIAL HISTORY: He is , retired. PHYSICAL EXAMINATION: GENERAL: Alert, but at this time in minimal pain, postoperative. The patient is alert and oriented. VITAL SIGNS: Temperature 97.3, pulse of 63 and regular, respirations are 20, blood pressure 120/77 with an O2 sat of 99% on room air. HEENT: Eyes are clear with the cataract implants, both eyes. Nose clear. NECK: No bruits or masses. CHEST: Distant breath sounds without wheeze or rales. HEART: Regular rate and rhythm. ABDOMEN: Soft, nontender, obese. No organomegaly. CONSULT REPORT [id number] WAYNE MORROW GENITOURINARY: Deferred. Holland is intact. EXTREMITIES: His left knee is in a postoperative wound dressing. NEUROLOGIC: He has good neurologic function of his lower extremities at this time. LABORATORY DATA: Preop shows H&H of 16.6 and 38.3 with a normal white count. BMP shows BUN and creatinine of 24 and 1.1, otherwise unremarkable. Urinalysis on the 24 showed 25-50 white cells, 1+ leukocyte esterase. On admission showed trace leukocyte esterase, 0-5 white cells. This is post treatment. Culture was pending. SARS RNA is negative. ASSESSMENT: 1. Postoperative day 0 of left total knee replacement. 2. Recent urinary tract infection, clinically resolved. 3. Sick sinus syndrome with pacemaker. 4. Coronary artery disease, clinically stable. 5. Hypertension, hyperlipidemia. PLAN: We will culture urine, place on Levaquin based on his previous cultures in 2020. We will follow with you medically. TRANSINT:[id number] Voice Confirmation ID: [id number] DOCUMENT ID: [id number] CARLOTTA MIRANDA MD at 0810 CC: [id number] DICTATION DATE: 07/15/20 1727 RADIO INTERFERENCE SUPERVISOR: 07/16/20 0030 ADM IN [facility] [address] [place] [address]
--- NOTE | 2020-07-16 08:59 | NUR ---
REQUESTED AND GIVEN ONE HYDROCODONE PO FOR C/O LEFT KNEE PAIN AND PAIN MANAGEMENT PRIOR TO THERAPY. WILL MONITOR.
[2020-07-16 09:13] LABS: HEMATOCRIT 29.6 % (42.0-54.0); HEMOGLOBIN 9.9 g/dL (13.5-17.5); MCH 30.8 pg (26.0-34.0); MCHC 33.4 g/dL (31.0-37.0); MCV 92.2 fL (80.0-100.0); MEAN PLATELET VOLUME 8.9 fL (7.4-10.4); RBC 3.21 10x6/uL (4.20-6.10); RDW 13.1 % (11.5-14.5); WBC 8.7 10x3/uL (4.8-10.8)
[2020-07-16 09:23] LABS: ANION GAP 12.7 mmol/L (8-16); CALCIUM 8.8 mg/dL (8.5-10.1); CARBON DIOXIDE 25.7 mmol/L (21.0-32.0); CREATININE - SERUM 1.3 mg/dL (0.6-1.3); POTASSIUM - SERUM 4.4 mmol/L (3.5-5.1)
--- NOTE | 2020-07-16 11:00 | NUR ---
SITTING UP IN CHAIR AT BEDSIDE. DENIES NEEDS.
[2020-07-16 11:08] VITALS: BP 90/60
[2020-07-16 12:00] VITALS: BP 118/84
--- NOTE | 2020-07-16 13:00 | NUR ---
ATE MOST OF LUNCH. DENIES NEEDS. NO CHANGES.
[2020-07-16] MEDS ORDERED: HYDROCODON-ACE1 EA10 PO (13:19)
[2020-07-16] MEDS ORDERED: ELIQUIS2.5 MG PO (13:19)
[2020-07-16] MEDS ORDERED: CIPRO500 MG PO (13:28)
--- NOTE | 2020-07-16 13:52 | MORECARE ---
CASE MANAGEMENT DISCHARGE SUMMARY PATIENT: WAYNE MORROW UNIT: [id number] ADM DATE: 07/15/20 AGE: 79 : 41 SEX: M ROOM/BED: D.1212 AUTHOR: CHONG HAYES PHYSICIAN: REFERRING PHYSICIAN: TONY ENG DO DATE OF SERVICE: 07/16/20 Discharge Plan Patient Name: WAYNE MORROW Facility: [facility]:[place] : 1940 Planned Disposition: Home with Home Health Anticipated Discharge Date: 07/16/20 Discharge Date: Expected LOS: 1 Initial Reviewer: [email or web address] Initial Review Date: 07/15/2020 Generated: 07/16/20 2:51 pm Comments DCP- Discharge Planning Updated by [email or web address]: Renae Pardo on 07/16/20 12:[address] Patient Name: WAYNE MORROW Encounter No: [id number] : 1940 Primary Insurance: MEDICARE A & B Anticipated DC Date: 07-16-2020 Planned Disposition: Home with Home Health External Planned Provider: : DCP follow-up note: Patient in agreement with discharge plan. I have called Dixon with [facility], order and med list faxed. He states that when his physician states he can drive, he would like to go to [facility] or [facility] in [place]. No changes to plan. Case management will follow and assist as needed. Renae Pardo DCP- Discharge Planning Updated by [id number]: Anshul Doss on 07/15/20 6:[address] CM met with patient to complete DC plan and to evaluate needs. Patient lives independently at home with his spouse, Yossi Morrow. At discharge, the patient plans to return home and feels this is a safe discharge. CM discussed availability of home health, rehab services, and medical equipment. Patient declined SNF, IPR, and DME. Patient stated that [facility] called him and delivered a CPM, elevated toilet seat, and walker. Patient declined outpatient Physical therapy. Patient stated that his is driving to [place] weekly to help with grandchildren and he does not know if he will be able to drive himself to outpatient therapy. Patient stated that he would like to speak to Dr. Eng about knee restrictions for driving. Patient stated that at this time it "...seems easier if they come to me, if my insurance will allow it". CM encouraged patient to speak with Dr Eng regarding physical therapy and perhaps changing to outpatient physical therapy. Patient stated that if after speaking to Dr. Eng, and it is decided for OP therapy, then his choice would be for [facility]. At this time the patient is choosing to have HH/Pt with [facility]. AVA signed and placed on chart. Patient voiced no other needs at this time and is satisfied with DC plan. Spoke with Jocelyn of [facility]. Jocelyn stated that SOC will be determined after clinicals are evaluated in the morning. DC IMM delivered, explained, signed by the patient, and placed in chart. Signed form also left with the patient. CM will continue to follow and will assist as needed with dc plans/needs. DCPIA - Discharge Planning Initial Assessment Updated by RANDEE: Anshul Doss on 07/15/20 6:48 pm * Is the patient Alert and Oriented? Yes * How many steps to enter\\exit or inside your home? Multiple * PCP MEME MIRANDA * [facility] near the [facility] * Preadmission Environment Home with Family * ADLs Independent * Equipment Elevated [place] Seat Walker * Other Equipment CPM * List name and contact numbers for known caregivers / representatives who currently or will assist patient after discharge: YOSSI MORROW (SPOUSE) [phone] * Verbal permission to speak to the caregivers and representatives has been obtained from the patient. Yes * Community resources currently utilized None * Please name any agencies selected above. n/a * Additional services required to return to the preadmission environment? Yes * Can the patient safely return to the preadmission environment? Yes * Has this patient been hospitalized within the prior 30 days at any hospital? No Coverage Notice Reviewer: RANDEE Doss Notice Issued Date-Time: 07/15/2020 16:30 Notice Type: Patient Choice Letter Notice Delivered To: Patient Relationship to Patient: Self Legal Transcriber Name: Delivery Method: HAND - Hand Delivered Mitzy Days: Prior Verbal Notification: Recipient Understood Notice: Yes Recipient Signature: Yes Med Rec Note Co-signed by Attending: Coverage Notice Comment: [facility] Reviewer: RANDEE Doss Notice Issued Date-Time: 07/15/2020 16:30 Notice Type: IM Discharge Notice Notice Delivered To: Patient Relationship to Patient: Self Legal Transcriber Name: Delivery Method: HAND - Hand Delivered Mitzy Days: Prior Verbal Notification: Recipient Understood Notice: Yes Recipient Signature: Yes Med Rec Note Co-signed by Attending: Coverage Notice Comment: DC IMM delivered, explained, signed by the patient, and placed in chart. Last DP export: 07/15/20 6:44 pm Patient Name: WAYNE MORROW Page [id number] at 1352 All edits/amendments must be made on the electronic document DICTATION DATE: 07/16/20 1352 DISH ROOM WORKER: SHAUN 07/16/20 1352 RPT#: [id number] DC DATE: STATUS: ADM IN [facility] [address] [place] [address] END OF REPORT
--- NOTE | 2020-07-16 15:00 | NUR ---
TALAMANTES D/C WITH TIP INTACT WITHOUT DIFFICULTY. IV TO RIGHT FOREARM D/C WITH CATHETER INTACT. DRESSING CHANGED TO LEFT KNEE. INCISION IS CLEAN DRY AND WELL APPROXIMATED. DISCHARGE INSTRUCTIONS GIVEN BOTH VERBALLY AND WRITTEN. ALL QUESTIONS ANSWERED. PATIENT VERBALIZED UNDERSTANDING OF SAME. EXTRA DRESSINGS SENT WITH PATIENT FOR CHANGES. NEEDED PRESCRIPTIONS GIVEN TO PATIENT. ALL BELONGINGS WITH PATIENT.
--- NOTE | 2020-07-17 14:42 | MORECARE ---
CASE MANAGEMENT DISCHARGE SUMMARY PATIENT: WAYNE MORROW DOYLE UNIT: [id number] ADM DATE: 07/15/20 AGE: 79 : 41 SEX: M ROOM/BED: D.1212 AUTHOR: CHONG HAYES PHYSICIAN: REFERRING PHYSICIAN: TONY ENG DO DATE OF SERVICE: 07/17/20 Discharge Plan Patient Name: WAYNE MORROW Facility: [facility]:[place] : 1940 Planned Disposition: Home with Home Health Anticipated Discharge Date: 07/16/20 Discharge Date: 07/16/2020 Expected LOS: 1 Initial Reviewer: [email or web address] Initial Review Date: 07/15/2020 Generated: 07/17/20 3:41 pm Comments DCP- Discharge Planning Updated by [email or web address]: Renae Pardo on 07/16/20 12:[address] Patient Name: WAYNE MORROW Encounter No: [id number] : 1940 Primary Insurance: MEDICARE A & B Anticipated DC Date: 07-16-2020 Planned Disposition: Home with Home Health External Planned Provider: : DCP follow-up note: Patient in agreement with discharge plan. I have called Dixon with [facility], order and med list faxed. He states that when his physician states he can drive, he would like to go to [facility] or [facility]. No changes to plan. Case management will follow and assist as needed. Renae Pardo DCP- Discharge Planning Updated by [id number]: Anshul Doss on 07/15/20 6:[address] CM met with patient to complete DC plan and to evaluate needs. Patient lives independently at home with his spouse, Yossi Morrow. At discharge, the patient plans to return home and feels this is a safe discharge. CM discussed availability of home health, rehab services, and medical equipment. Patient declined SNF, IPR, and DME. Patient stated that [facility] called him and delivered a CPM, elevated toilet seat, and walker. Patient declined outpatient Physical therapy. Patient stated that his is driving to [place] weekly to help with grandchildren and he does not know if he will be able to drive himself to outpatient therapy. Patient stated that he would like to speak to Dr. Eng about knee restrictions for driving. Patient stated that at this time it "...seems easier if they come to me, if my insurance will allow it". CM encouraged patient to speak with Dr Eng regarding physical therapy and perhaps changing to outpatient physical therapy. Patient stated that if after speaking to Dr. Eng, and it is decided for OP therapy, then his choice would be for [facility]. At this time the patient is choosing to have HH/Pt with [facility]. AVA signed and placed on chart. Patient voiced no other needs at this time and is satisfied with DC plan. Spoke with Jocelyn of [facility]. Jocelyn stated that SOC will be determined after clinicals are evaluated in the morning. DC IMM delivered, explained, signed by the patient, and placed in chart. Signed form also left with the patient. CM will continue to follow and will assist as needed with dc plans/needs. DCPIA - Discharge Planning Initial Assessment Updated by RANDEE: Anshul Doss on 07/15/20 6:48 pm * Is the patient Alert and Oriented? Yes * How many steps to enter\\exit or inside your home? Multiple * PCP MEME SURINAMESE * Pharmacy [facility] near the [facility] * Preadmission Environment Home with Family * ADLs Independent * Equipment Elevated [place] Seat Walker * Other Equipment CPM * List name and contact numbers for known caregivers / representatives who currently or will assist patient after discharge: YOSSI MORROW (SPOUSE) [phone] * Verbal permission to speak to the caregivers and representatives has been obtained from the patient. Yes * Community resources currently utilized None * Please name any agencies selected above. n/a * Additional services required to return to the preadmission environment? Yes * Can the patient safely return to the preadmission environment? Yes * Has this patient been hospitalized within the prior 30 days at any hospital? No Coverage Notice Reviewer: RANDEE Doss Notice Issued Date-Time: 07/15/2020 16:30 Notice Type: Patient Choice Letter Notice Delivered To: Patient Relationship to Patient: Self Direct Marketing Coordinator Name: Delivery Method: HAND - Hand Delivered Mitzy Days: Prior Verbal Notification: Recipient Understood Notice: Yes Recipient Signature: Yes Med Rec Note Co-signed by Attending: Coverage Notice Comment: [facility] Reviewer: RANDEE Turknes Notice Issued Date-Time: 07/15/2020 16:30 Notice Type: IM Discharge Notice Notice Delivered To: Patient Relationship to Patient: Self Direct Marketing Coordinator Name: Delivery Method: HAND - Hand Delivered Mitzy Days: Prior Verbal Notification: Recipient Understood Notice: Yes Recipient Signature: Yes Med Rec Note Co-signed by Attending: Coverage Notice Comment: DC IMM delivered, explained, signed by the patient, and placed in chart. Last DP export: 07/16/20 12:52 pm Patient Name: WAYNE MORROW Page [id number] at 1442 All edits/amendments must be made on the electronic document DICTATION DATE: 07/17/20 144 [address] WORKER: SHAUN 07/17/20 1442 RPT#: [id number] DC DATE:07/16/20 STATUS: DIS IN [facility] [address] [place] [address] END OF REPORT
== END 2020-07-16 15:00 | disposition home health service (06) | DRG 470 ==
LOC: D.SDCHOLD 07-15 06:15 → D.M3 07-15 06:15 → D.MS 07-15 08:30 → D.OPS 07-15 08:30 → D.MS 07-15 11:15 → EDSTATUS 07-15 11:15 → D.OPS 07-15 11:15 → D.M3 07-15 11:33
PROVIDERS: Family Medicine; ADMIT Orthopaedic Surgery; ATTEND Orthopaedic Surgery
PROC: 0SRD0J9 Replacement of Left Knee Joint with Synthetic Substitute, Cemented, Open Approach (ICD-10-PCS; principal; 2020-07-15 08:30)
DX: M17.12 Unilateral primary osteoarthritis, left knee (principal); I25.10 Atherosclerotic heart disease of native coronary artery without angina pectoris; E78.5 Hyperlipidemia, unspecified; K27.9 Peptic ulcer, site unspecified, unspecified as acute or chronic, without hemorrhage or perforation; I10 Essential (primary) hypertension; Z95.0 Presence of cardiac pacemaker